=== PATIENT | male | born 1950 | race Caucasian/White ===

== ENCOUNTER 2018-03-14 14:51 | Inpatient (IN) | payer MEDICARE, OTHER ==
[~2018-03-14] VITALS: Ht 172.7 cm; Wt 90.7 kg
[2018-03-14] MEDS ORDERED: DOCUSATE SODIUM 100 MG (COLACE) CAP PO PRN (16:15)
[2018-03-14] MEDS ORDERED: IBUPROFEN TABLET 200 MG TAB PO PRN (16:15)
[2018-03-14] MEDS ORDERED: CALCIUM CARBONATE 500 MG (TUMS) TAB.CHEW PO PRN (16:15)
[2018-03-14] MEDS ORDERED: ALPRAZolam 0.25 MG (XANAX) TAB PO PRN (16:15)
[2018-03-14] MEDS ORDERED: diphenhydrAMINE 25 MG TAB (BENADRYL) PO PRN (16:15)
[2018-03-14] MEDS ORDERED: LOPERAMIDE 2 MG (IMODIUM) CAP PO PRN (16:15)
[2018-03-14] MEDS ORDERED: ONDANSETRON 4 MG (ZOFRAN) ORAL DISSOLVE TAB PO PRN (16:15)
--- NOTE | 2018-03-14 16:50 | NUR ---
PANCHO DU admitted to room 229-1, with an admitting diagnosis of TLIF OF L3-L5, on 03/14/18 from [facility] 4 STATES via WHEELCHAIR, accompanied by STAFF AND . PANCHO DU I introduced to surroundings, call light, bed controls, phone, TV, temperature control, lights, meal times, smoking policy, visitor policy, side rail policy, bathrooms and showers. Patient Rights given to patient in the handbook.PANCHO UD I verbalizes understanding that [facility] is not responsible for the loss or damage to any personal effects or valuables that are kept in the patients posession during their hospitalization. The following Patient Care Plans were discussed with the PT: Discharge Planning AND IMPAIRED MOBILITY. PANCHO DU I verbalizes understanding of Interdisciplinary Patient Education. Patient received Patient Rights Booklet, which includes Privacy Act Statement and Data Collection Information Summary. TEMP 102.0. DR. THURMAN OF ADMISSION AND FEVER. ORDERS NOTED.
[2018-03-14] MEDS ORDERED: HYDROcodone/APAP 5 MG/325 MG (LORTAB) TAB PO PRN (17:45)
[2018-03-14 17:54] LABS: BILIRUBIN,URINE NEGATIVE (NEGATIVE); CLARITY,URINE CLEAR; COLOR,URINE YELLOW; GLUCOSE, URINE (UA) NEGATIVE (NEGATIVE); KETONES,URINE NEGATIVE (NEGATIVE); LEUKOCYTE ESTERASE ,URINE NEGATIVE (NEGATIVE); NITRITE,URINE NEGATIVE (NEGATIVE); PH,URINE 5 (5-9); PROTEIN,URINE 2+ (NEGATIVE); UROBILINOGEN,URINE NORMAL (NORMAL)
--- NOTE | 2018-03-14 17:58 | Diagnostic Imaging Report ---
INDICATION: Wheezing, status post back surgery. EXAMINATION: Two-view chest, 03/14/2018. FINDINGS: There is a left-sided pacemaker. The heart is unremarkable. Pulmonary vasculature is minimally congested. Remaining lungs are clear. No effusions. No infiltrates. No pneumothorax. Postoperative findings noted along the cervical spine. IMPRESSION: 1. Increased perihilar opacities which could be due to mild vascular congestion; correlate with symptoms. 2. Not mentioned in the body of the report, small nodule noted in the retrosternal space. This is nonspecific, and if no priors are available for comparison, followup or CT on a nonemergent basis could exclude a noncalcified nodule. Dictated by: Dictated on workstation # [id number]
[2018-03-14 18:09] LABS: AMORPHOUS SEDIMENT,UR FEW AMOR URATES /LPF; SQUAMOUS EPITHELIAL CELL,UR RARE /HPF
[2018-03-14] MEDS: RT-ALBUTEROL/IPRATROPIUM 3 ML (DUONEB) VIAL INH SCH ×2 (19:28→22:55)
[2018-03-14 19:38] LABS: BASOPHILS % (AUTO) 0 % (0-10); EOSINOPHILS % (AUTO) 1 % (0-10); HEMATOCRIT 25 % (40-54); HEMOGLOBIN 8.3 G/DL (13.3-17.7); LYMPHOCYTES # (AUTO) 0.8 X 10^3 (1.0-4.0); LYMPHOCYTES % (AUTO) 14 % (12-44); MEAN CORPUSCULAR HEMOGLOBIN 29 PG (25-34); MEAN CORPUSCULAR HGB CONC 33 G/DL (32-36); MEAN CORPUSCULAR VOLUME 88 FL (80-99); MONOCYTES # (AUTO) 0.3 X 10^3 (0.0-1.0); MONOCYTES % (AUTO) 5 % (0-12); NEUTROPHILS # (AUTO) 4.5 X 10^3 (1.8-7.8); NEUTROPHILS % (AUTO) 79 % (42-75); PLATELET COUNT 145 10^3/uL (130-400); RED CELL DISTRIBUTION WIDTH 14.3 % (10.0-14.5); WHITE BLOOD COUNT 5.7 10^3/uL (4.3-11.0)
[2018-03-14] MEDS: NS IV 1000 ML 1,000 ML IV SCH (19:46)
[2018-03-14] MEDS: TAMSULOSIN 0.4 MG (FLOMAX) CAP PO SCH (19:46)
[2018-03-14 20:01] LABS: ALBUMIN 3.3 GM/DL (3.2-4.5); BILIRUBIN,TOTAL 0.7 MG/DL (0.1-1.0); CALCIUM 8.6 MG/DL (8.5-10.1); CREATININE SERUM 2.01 MG/DL (0.60-1.30); POTASSIUM 3.6 MMOL/L (3.6-5.0); TOTAL PROTEIN 6.1 GM/DL (6.4-8.2)
--- NOTE | 2018-03-14 20:15 | NUR ---
critical lab value blood glucose 47. per protocol gave sugared juice, ensure clear, peanut butter and vern cracker. contacted dr Cai and ok with holding insulin DETEMIR 15 units. recheck of blood sugar is now 74. Order for d5ns at 75cc/hr.
[2018-03-14] MEDS: inSUlin ASPART (NovoLOG) 1 UNIT/0.01 ML (CHARGE PER UNIT) SC SCH (20:23)
[2018-03-14] MEDS ORDERED: D5 NS 1000 ML IV SOLUTION 1,000 ML IV ONE (20:45)
[2018-03-14] MEDS ORDERED: D5 NS 1000 ML IV SOLUTION 1,000 ML IV SCH (20:45)
[2018-03-14] MEDS ORDERED: inSUlin DETERMIR 1 UNIT/0.01 ML (LEVEMIR) CHARGE PER UNIT SQ SCH (21:00)
[2018-03-14] MEDS: PANTOPRAZOLE 40 MG (PROTONIX) TAB PO SCH (21:27)
[2018-03-15] MEDS: ACETAMINOPHEN 500 MG TAB (TYLENOL) PO PRN ×3 (00:14→17:27)
[2018-03-15] MEDS: NS IV 1000 ML 1,000 ML IV SCH ×2 (00:15→16:31)
[2018-03-15] MEDS: RT-ALBUTEROL/IPRATROPIUM 3 ML (DUONEB) VIAL INH SCH ×6 (03:45→22:05)
[2018-03-15 05:33] LABS: BASOPHILS % (AUTO) 0 % (0-10); EOSINOPHILS # (AUTO) 0.1 10^3/uL (0.0-0.3); EOSINOPHILS % (AUTO) 1 % (0-10); HEMATOCRIT 23 % (40-54); HEMOGLOBIN 7.3 G/DL (13.3-17.7); LYMPHOCYTES # (AUTO) 1.1 X 10^3 (1.0-4.0); LYMPHOCYTES % (AUTO) 25 % (12-44); MEAN CORPUSCULAR HEMOGLOBIN 29 PG (25-34); MEAN CORPUSCULAR HGB CONC 32 G/DL (32-36); MEAN CORPUSCULAR VOLUME 89 FL (80-99); MONOCYTES # (AUTO) 0.3 X 10^3 (0.0-1.0); MONOCYTES % (AUTO) 7 % (0-12); NEUTROPHILS # (AUTO) 2.8 X 10^3 (1.8-7.8); NEUTROPHILS % (AUTO) 67 % (42-75); PLATELET COUNT 114 10^3/uL (130-400); RED CELL DISTRIBUTION WIDTH 13.9 % (10.0-14.5); WHITE BLOOD COUNT 4.2 10^3/uL (4.3-11.0)
[2018-03-15 05:52] LABS: ALBUMIN 2.8 GM/DL (3.2-4.5); BILIRUBIN,TOTAL 0.6 MG/DL (0.1-1.0); CALCIUM 8.1 MG/DL (8.5-10.1); CREATININE SERUM 2.01 MG/DL (0.60-1.30); POTASSIUM 3.4 MMOL/L (3.6-5.0); TOTAL PROTEIN 5.3 GM/DL (6.4-8.2)
[2018-03-15] MEDS ORDERED: NS IV 500 ML 500 ML IV SCH (06:03)
[2018-03-15 06:20] VITALS: BP 143/64
[2018-03-15] MEDS: inSUlin ASPART (NovoLOG) 1 UNIT/0.01 ML (CHARGE PER UNIT) SC SCH ×4 (06:57→20:53)
[2018-03-15] MEDS: PANTOPRAZOLE 40 MG (PROTONIX) TAB PO SCH ×2 (06:57→20:28)
[2018-03-15] MEDS: metFORMIN 500 MG (GLUCOPHAGE) TAB PO SCH ×2 (06:57→17:23)
--- NOTE | 2018-03-15 07:19 | NUR ---
patient was in the bathroom when RT entered the patients room; RT will come back later to do the SVN BT
[2018-03-15 09:04] VITALS: BP 160/67
[2018-03-15 09:19] VITALS: BP 148/70
[2018-03-15] MEDS ORDERED: SIMV20TA3 PO (09:31)
[2018-03-15] MEDS ORDERED: NFMET1000 PO (09:31)
[2018-03-15] MEDS ORDERED: PANT40TA3 PO (09:31)
[2018-03-15] MEDS ORDERED: AMLO10TA7 PO (09:31)
[2018-03-15] MEDS ORDERED: RAMI10CA69 PO (09:31)
[2018-03-15] MEDS ORDERED: HYDR25TA4 PO (09:31)
[2018-03-15] MEDS ORDERED: TAMS0.4C2 PO (09:31)
[2018-03-15] MEDS ORDERED: GABA-488 PO (09:31)
[2018-03-15] MEDS ORDERED: INSU200I4 SQ (09:31)
[2018-03-15] MEDS ORDERED: CLOP75TA28 PO (09:31)
--- NOTE | 2018-03-15 10:05 | Physical Therapy Evaluation ---
PT Evaluation-General Medical Diagnosis Admission Date Mar 14, 2018 at 16:50 Medical Diagnosis: s/p L3-5 lumbar fusion Onset Date: Mar 10, 2018 Therapy Diagnosis Therapy Diagnosis: abnormality of gait Height/Weight Height (Feet): 5 Height (Inches): 8.00 Weight (Pounds): 200 Weight (Ounces): 0.0 Precautions Precautions/Isolations: Fall Prevention, Standard Precautions, Pressure Ulcer Weight Bear Status Weight Bearing/Tolerated Weight Bearing/Tolerated Referral Physician: Trell Reason for Referral: Evaluation/Treatment Social History Home: Single Level Current Living Status: Significant Other Entry Into Home: Stairs With Railing PT Steps Inside Home: 3 Prior/Core FIM Prior Level of Function Therapy Code Descriptions/Definitions Functional [place] Measure: 0=Not Assessed/NA 4=Minimal Assistance 1=Total Assistance 5=Supervision or Setup 2=Maximal Assistance 6=Modified [place] 3=Moderate Assistance 7=Complete [place] Therapy Quality Codes: 6 Independent with activity with or without an assistive device 5 Patient requires set up or clean up by helper. Patient completes activity by themselves 4 Supervision or touching assist (CGA). [place] provide cues , steadying assist 3 The helper provides less than half the effort to complete the activity 2 The helper provides more than half the effort to complete the activity 1 Dependent. The helper does all the effort to complete an activity 7 Patient refused to complete or attempt activity 9 The patient did not perform the activity before the current illness or injury 88 Not attempted due to Medical conditions or safety concerns Functional Abilities and Goals: Independent: Patient completed the activities by him/herself, with or without an assistive device, with no assistance from a helper. Needed Some Help: Patient needed partial assistance from another person to complete activities. Dependent: A helper completed the activities for the patient. Unknown: Not Applicable: Bed Mobility: 7 Transfers (B,C,W/C) (FIM): 7 Gait: 7 Stairs: 7 Indoor Mobility (Ambulation): Independent Stairs: Independent PT Evaluation-Current ROM/Strength Strenght Lower Extremities 2+/5 in (R) hip flexion, 3+/5 (R) knee, 4/5 (L) LE Neuromuscular (Tone, Coordination, Reflexes) intact Sensory Hand Dominance: Right Sensation Right Lower Extremit: Intact Sensation Left Lower Extremity: Intact Transfers Therapy Code Descriptions/Definitions Functional [place] Measure: 0=Not Assessed/NA 4=Minimal Assistance 1=Total Assistance 5=Supervision or Setup 2=Maximal Assistance 6=Modified [place] 3=Moderate Assistance 7=Complete [place] Therapy Quality Codes: 6 Independent with activity with or without an assistive device 5 Patient requires set up or clean up by helper. Patient completes activity by themselves 4 Supervision or touching assist (CGA). [place] provide cues , steadying assist 3 The helper provides less than half the effort to complete the activity 2 The helper provides more than half the effort to complete the activity 1 Dependent. The helper does all the effort to complete an activity 7 Patient refused to complete or attempt activity 9 The patient did not perform the activity before the current illness or injury 88 Not attempted due to Medical conditions or safety concerns Transfers (B, C, W/C) (FIM): 3 Scootin Rollin Roll Left to Right (QC): 4 Supine to/from Sit: 3 Sit to/from Stand: 5 Sit to Lying (QC): 4 Lying to Sitting/Side of Bed(Q: 4 Sit to Stand (QC): 5 Chair/[id number]-zg-[id number] Xfer(QC): 4 Car Transfer (QC): 4 Gait Does the Patient Walk?: Yes Mode of Locomotion: Walk Anticipated Mode of Locomotion: Walk Gait (FIM): 1 Distance (FIM): 1=up to 49 ft Walk 10 feet (QC): 5 Stairs Stairs (FIM): 5 #of Steps: 4 Level of Assist: 5 1 Step (curb) (QC): 5 4 Steps (QC): 5 If not tested on admit;explain unsafe to do 12 steps Balance Sitting Static: Good Sitting Dynamic: Good Standing Static: Fair Standing Dynamic: Poor Special Test Comments unable secondary to recent surgery and hip replacements Assessment/Needs 68 y.o. male s/p multilevel fusion with limitations with functional mobility secondary to pain. Rehab Potential: Good PT Short Term Goals Short Term Goals Time Frame: Mar 29, 2018 Transfers (B,C,W/C) (FIM): 5 Gait (FIM): 5 Distance (FIM): 3=150 ft Gait Level of Assist: 5 Gait Assistive Device: FWW PT Form Builder Helper Goals Group Home Goals PT Group Home Goals Time Frame: Apr 12, 2018 Transfers (B,C,W/C) (FIM): 7 Sit to Lying (QC): 7 Lying-Sitting on Side/Bed(QC): 7 Sit to Stand (QC): 7 Rollin Roll Left to Right (QC): 7 Chair/Pcr-wr-Vztmj Xfer(QC): 7 Car Transfer (QC): 7 Does the Patient Walk: Yes Gait (FIM): 6 Gait distance (FIM): 3=150 ft Distance: 500' Walk 10 feet (QC): 7 Walk 10ft-Uneven Surface(QC): 7 Walk 50ft with 2 Turns (QC): 7 Walk 150 ft (QC): 7 Gait Level of Assist: 6 Gait Assistive Device: FWW PT Plan Problem List Problem List: Activity Tolerance, Functional Strength, Safety, Balance, Gait, Transfer, Bed Mobility, ROM Treatment/Plan Treatment Plan: Continue Plan of Care Treatment Plan: Bed Mobility, Concurrent Therapy, Education, Functional Activity Isaac, Functional Strength, Group Therapy, Gait, Therapeutic Exercise, Transfers Treatment Duration: Apr 12, 2018 Frequency: At least 5 of 7 days/Wk (IRF) Estimated Hrs Per Day: 1.5 hours per day Patient and/or Family Agrees t: Yes Safety Risks/Education Patient Education: Gait Training, Transfer Techniques, Steps, Issued Written HEP Time/GCodes Time In: 0930 Time Out: 1100 Total Billed Treatment Time: 90 Total Billed Treatment 1, EV Low complexity, 15' GT, 15' EX, 45' FA G Codes Necessary: DACIA Black PT Mar 15, 2018 10:05
[2018-03-15] MEDS ORDERED: KCL 10 MEQ TAB (MICRO K) PO NR (10:30)
--- NOTE | 2018-03-15 10:34 | PM&R H&P / Post Admit Assess ---
History of Present Illness HPI/Chief Complaint CC: Debility following lumbar spine surgery uncomplicated by Dr Elmore at [facility] HPI: This is a 67-year-old who had an uncomplicated lumbar spine surgery by Dr. Elmore on 03/10/18 at [facility] who had a complicated postoperative course requiring 1 unit of blood and postop fever with chest x- ray revealing atelectasis and significant delirium with worsening creatinine requiring inpatient rehabilitation at the [facility] hospital. His delirium has improved a great deal but still slightly slowed responses at times. Fecal incontinence will be managed while in rehabilitation hospital stay. Creatinine remained stable at 2.0. I have asked cardiology consultation in case patient has a rhythm disturbance while hospitalized here at the hospital. Dr. Ugalde is his african studies professor. Dr Laws is his PCP. Source: patient Exam Limitations: no limitations Date Seen 03/15/18 Time Seen by a Provider: 10:[address] Cai DO PCP Court Cai DO Referring Physician Date of Admission Mar 14, 2018 at 16:50 Home Medications & Allergies Home Medications Reviewed patient Home Medication Reconciliation performed by pharmacy medication reconciliations racking technician and/or nursing. Patients Allergies have been reviewed. Allergies Allergies Coded Allergies aspirin (Verified Allergy, Unknown, 03/14/18) dipyridamole (Verified Allergy, Unknown, 03/14/18) levofloxacin (Verified Allergy, Unknown, 03/14/18) Past [id number]-[id number] Hx Past Med/Social Hx: Reviewed Nursing Past Med/Soc Hx, Reviewed and Corrections made Patient Social History Marrital Status: Employed/Student: retired Alcohol Use: Denies Use Recreational Drug Use: No Smoking Status: Former Smoker Physical Abuse Screen: No Sexual Abuse: No Recent Foreign Travel: No Contact w/other who traveled: No Recent Hopitalizations: Yes (Surgery in November) Recent Infectious Disease Expo: No Immunizations Up To Date Date of Pneumonia Vaccine: Mar 14, 2011 Date of Influenza Vaccine: Jan 25, 2018 Seasonal Allergies Seasonal Allergies: Yes Past Medical History Surgeries: Cardiac (CAD), Orthopedic, Pacemaker Respiratory: COPD Currently Using CPAP: No Cardiac: Atrial Fibrillation, High Cholesterol, Hypertension Neurological: Neuropathy Sexually Transmitted Disease: No HIV/AIDS: No Genitourinary: Renal Failure Gastrointestinal: Gastroesophageal Reflux, Hiatal Hernia Musculoskeletal: Arthritis, Back Injury, Chronic Back Pain Endocrine: Diabetes, Insulin dep Are Your Blood Sugars Over 250: No HEENT: Cataract Loss of Vision: Denies Hearing Impairment: Denies Cancer: Melanoma Did You Recieve Any Treatments: Yes What Type of Treatment Did You: Surgical Intervention History of Blood Disorders: No Adverse Reaction to Blood Ibarra: No Family History BREAST CAN 19 MOTHER Cardiovascular disease 19 FATHER G8 SISTER FH: breast cancer Diabetes Review of Systems Constitutional: see HPI, chills, diaphoresis, dizziness, fever, malaise, weakness EENTM: no symptoms reported Respiratory: cough, short of breath, wheezing Cardiovascular: no symptoms reported Gastrointestinal: diarrhea, loss of appetite Genitourinary: decreased output Musculoskeletal: back pain Skin: no symptoms reported Psychiatric/Neurological: Depressed, Other (confused) All Other Systems Reviewed Negative Unless Noted: Yes Physical Exam Exam Vital Signs Vital Signs Date Time Temp Pulse Resp B/P (MAP) Pulse Ox O2 Delivery O2 Flow Rate FiO2 03/15/18 12:06 99.0 81 18 148/66 97 Room Air Capillary Refill : General Appearance: No Apparent Distress, WD/WN, Chronically ill, Thin HEENT: PERRL/EOMI, TMs Normal, Normal ENT Inspection, Pharynx Normal, Moist Mucous Membranes Neck: Full Range of Motion, Normal Inspection, Non Tender, Supple Respiratory: Chest Non Tender, Lungs Clear, No Accessory Muscle Use, No Respiratory Distress, Decreased Breath Sounds (bases) Cardiovascular: Regular Rate, Rhythm, No Edema, No Gallop, No JVD, No Murmur Gastrointestinal: Normal Bowel Sounds, No Organomegaly, No Pulsatile Mass, Non Tender, Soft Back: Decreased Range of Motion, Other (dressing intact) Extremity: Normal Capillary Refill, Normal Inspection, Normal Range of Motion, Non Tender, No Calf Tenderness, No Pedal Edema Neurologic/Psychiatric: Alert, Oriented x3, No Motor/Sensory Deficits, Normal Mood/Affect, Other (subtle slowed responses) Skin: Normal Color, Warm/Dry Lymphatic: No Adenopathy Results Results/Procedures Labs Laboratory Tests 03/14/18 19:25 03/15/18 05:22 Patient resulted labs reviewed. Assessment/Plan Assessment and Plan Assess & Plan/Chief Complaint Assessment: Debility Status post uncomplicated lumbar spine surgery POD # 5 Acute fecal incontinence Chronic renal insufficiency with acute elevation of creatinine nonoliguric Postop anemia requiring blood transfusions 1 at [facility] and the other today COPD with chronic bronchitis Pacemaker Sick sinus syndrome requesting Cardiology consultation GERD Hypertension BPH Plan: Intensive therapies Monitor urinary output Check labs in morning Continue holding Plavix due to risk of hematoma formation Consult cardiology Monitor creatinine Home meds but hold hydrochlorothiazide, KENIA inhibitor, and decreased dose of metformin that he is insistent on taking in order to decrease chance of lactic acidosis in the setting of elevated creatinine Replace potassium Monitor fever only since workup negative (1) Debility (2) Pacemaker (3) Fever postop (4) SSS (sick sinus syndrome) (5) Hx TIA/stroke w/o resid (6) BPH (benign prostatic hyperplasia) (7) Transfusion of blood during current hospitalization (8) Hypertension (9) Chronic bronchitis (10) GERD (gastroesophageal reflux disease) (11) Anemia, posthemorrhagic, acute (12) Renal insufficiency (13) Neuropathy (14) Hyperlipidemia (15) Delirium (16) Diabetes mellitus (17) Fecal incontinence (18) Hypokalemia (19) COPD (chronic obstructive pulmonary disease) Post Admission Physician Asses Date seen by provider: Mar 15, 2018 Time seen by provider: 10:00 Admisison Dx: (1) Debility Status: Acute (2) Pacemaker Status: Chronic (3) Renal insufficiency Status: Acute (4) Anemia, posthemorrhagic, acute Status: Acute (5) Transfusion of blood during current hospitalization Status: Acute (6) Diabetes mellitus Status: Chronic (7) Hypertension Status: Chronic (8) COPD (chronic obstructive pulmonary disease) Status: Chronic (9) Chronic bronchitis Status: Chronic (10) Fever postop Status: Acute (11) H/O lumbosacral spine surgery Status: Acute (12) Delirium Status: Acute (13) Hypokalemia Status: Acute (14) BPH (benign prostatic hyperplasia) Status: Chronic (15) Hyperlipidemia Status: Chronic (16) GERD (gastroesophageal reflux disease) Status: Chronic (17) Neuropathy Status: Chronic (18) Fecal incontinence Status: Acute (19) SSS (sick sinus syndrome) Status: Chronic (20) Hx TIA/stroke w/o resid Status: Chronic The preadmission screen agrees with the post admission assessment that the patient is a good candidate for inpatient rehabilitation. The patient will have a comprehensive program of inpatient rehabilitation with a goal of maximizing level of functional independence prior to discharge home with family. The patient will have PT/OT ninety minutes per day, each discipline, five days a week for gait, strengthening, conditioning, balance, ADLs, any patient/family/caregiver training as necessary. Speech therapy to do cognitive assessment and treat as indicated. Rehabilitation nursing to assist with bowel, bladder, skin, wound care, medication administration, pain management. Surgical Services Asst to assist with discharge planning, community reentry. SCD's for DVT prophylaxis. He appears to be well motivated to participate in three hours of therapy a day. He should be able to tolerate three hours of therapy a day from a medical standpoint. He should benefit from the three hours of therapy a day. He has a reasonable discharge plan, reasonable discharge rehabilitation goals and a supportive family. He has various comorbidities that need to be closely monitored with medications and treatments adjusted on a daily basis as needed. These include: Barriers to discharge for this patient who had been independent prior to this are for him to be modified independent to supervision for ADLs and mobility skills prior to discharge home with [family], so as to lessen the burden of the caregivers. Risks for this patient include: 1. Fall 2. Fracture 3. DVT 4. Pulmonary embolism 5. Wound infection 6. Skin breakdown 7. Contractures 8. Poorly controlled pain 9. Urinary retention 10. UTI 11. Respiratory infection 12. Aspiration Estimated Length of Stay: 7 days Prognosis: Rehab prognosis appears good for goal of discharge home with family modified independent to supervision for ADLs and mobility skills. General: Alert, Oriented X3, Cooperative, No Acute Distress HEENT: Atraumatic, PERRLA Neck: Supple, No JVD, No Thyromegaly, +2 Carotid Pulse No Bruit, No LAD Lungs: Clear to Auscultation, Normal Air Movement Heart: Regular Rate, Normal S1, Normal S2 Abdomen: Normal Bowel Sounds, Soft, No Tenderness, No Hepatosplenomegaly, No Masses Extremities: No Clubbing, No Cyanosis, No Edema, Normal Pulses, No Tenderness/ Swelling Skin: No Rashes, No Breakdown, No Significant Lesion Neuro: Normal Speech, Normal Tone, Sensation Intact, Cranial Nerves 3-12 NL, Reflexes 2+, Other (generalized weakness all extremities) Psych/Mental Status: Mental Status NL, Mood NL, Other (subtle slowing) Copy Copies To 1: GABY LONDON MD Copies To 2: QUE UGALDE MINDI DO Mar 15, 2018 10:34
--- NOTE | 2018-03-15 10:46 | Occupational Therapy Eval ---
OT Evaluation-General/PLF Medical Diagnosis Admission Date Mar 14, 2018 at 16:50 Medical Diagnosis: Stenosis Onset Date: Mar 10, 2018 Therapy Diagnosis Therapy Diagnosis: decreased self care skills Height/Weight Height (Feet): 5 Height (Inches): 8.00 Weight (Pounds): 200 Weight (Ounces): 0.0 Precautions Precautions/Isolations: Fall Prevention, Standard Precautions, Pressure Ulcer Safety Interventions: None Comments Back brace Referral Physician: Trell Medical History Pertinent Medical History: DM, HTN Additional Medical History MEGAN, back surgery, hypercholesterolemia, reflux, melanoma, pacemaker, bilateral CTR, TIAx3 Current History pt s/p lumbar surgery Reviewed History: Yes Social History Home: Single Level Current Living Status: Spouse Entry Into Home: Stairs With Railing ADL-Prior Level of Function Therapy Code Descriptions/Definitions Functional [place] Measure: 0=Not Assessed/NA 4=Minimal Assistance 1=Total Assistance 5=Supervision or Setup 2=Maximal Assistance 6=Modified [place] 3=Moderate Assistance 7=Complete [place] Therapy Quality Codes: 6 Independent with activity with or without an assistive device 5 Patient requires set up or clean up by helper. Patient completes activity by themselves 4 Supervision or touching assist (CGA). Shock provide cues , steadying assist 3 The helper provides less than half the effort to complete the activity 2 The helper provides more than half the effort to complete the activity 1 Dependent. The helper does all the effort to complete an activity 7 Patient refused to complete or attempt activity 9 The patient did not perform the activity before the current illness or injury 88 Not attempted due to Medical conditions or safety concerns Functional Abilities and Goals: Independent: Patient completed the activities by him/herself, with or without an assistive device, with no assistance from a helper. Needed Some Help: Patient needed partial assistance from another person to complete activities. Dependent: A helper completed the activities for the patient. Unknown: Not Applicable: ADL PLOF Comments Pt states he is normally independent with self care and mobility Self Care: Independent Drive Self: Yes OT Current Status Subjective Pt agrees to therapy this morning. Reports 4/10 pain in LE. Mental Status/Objective Patient Orientation: Person, Place, Situation Attachments: IV Current Glasses/Contacts: Yes Hearing Aids: No Dentures/Partials: Yes Hand Dominance: Right Upper Extremity ROM Grossly WFL Upper Extremity Coordination Intact ADL-Treatment ADL-Current Pt in restroom when therapist arrives. Pt sit to stand from toilet with SBA. Requires assist for toileting hygiene. Pt able to manage clothing with SBA. Sponge bath completed while seated in chair. Upper body bathing completed with set up. Pt able to wash bilateral upper legs and laly area. Requires assist for lower legs. Don pullover shirt with SBA. Pt required assist to start shorts over feet secondary to back precautions. Will need adaptive equipment for LE ADLs. Pt stood with good balance and was able to complete pant hike. Donned back brace with minimal assist. Assist to doff/don socks. Grooming tasks completed standing at sink. Pt completed oral care with SBA. Pt returned to chair, sitting with needs met and RN present after session. Eating (FIM): 6 Eating (QC): 6 Grooming (FIM): 5 Oral Hygiene (QC): 4 Bathing (FIM): 3 Bathing Location: L Arm, R Arm, L Upper Leg, R Upper Leg, Chest, Abdomen, Perineal Area Shower/Bathe Self (QC): 3 Upper Body Dressing (FIM): 5 Upper Body Dressing (QC): 4 Lower Body Dressing (FIM): 4 Lower Body Dressing (QC): 3 Toileting (FIM): 3 Toileting Hygiene (QC): 3 Toilet/Commode Transfer (FIM): 5 Toilet Transfer (QC): 4 Education OT Patient Education: Rehab process Teaching Recipient: Patient Teaching Methods: Discussion Response to Teaching: Verbalize Understanding OT Short Term Goals Short Term Goals Time Frame: Mar 22, 2018 Bathing(FIM): 4 Lower Body Dressing(FIM): 5 1=Demonstrate adherence to instructed precautions during ADL tasks. 2=Patient will verbalize/demonstrate understanding of assistive devices/ modifications for ADL. 3=Patient will improve strength/tolerance for activity to enable patient to perform ADL's. OT Finance Admin Goals Half-Way Goals Time Frame: Mar 29, 2018 Eating (FIM): 6 Eating (QC): 6 Groomin Oral Hygiene (QC): 6 Bathing(FIM): 5 Shower/Bathe Self (QC): 5 Upper Body Dressing(FIM): 6 Upper Body Dressing (QC): 6 Lower Body Dressing(FIM): 6 Lower Body Dressing (QC): 6 On/Off Footwear (QC): 6 Toileting(FIM): 6 Toileting Hygiene (QC): 6 Toilet/Commode Transfer(FIM): 6 Toilet/Commode Transfer (QC): 6 Shower Transfer(FIM): 5 Additional Goals: 1-Demonstrate ADL Tasks, 2-Verbalize Understanding, 3- ImproveStrength/Isaac 1=Demonstrate adherence to instructed precautions during ADL tasks. 2=Patient will verbalize/demonstrate understanding of assistive devices/ modifications for ADL. 3=Patient will improve strength/tolerance for activity to enable patient to perform ADL's. OT Education/Plan Problem List/Assessment Assessment: Decreased Activ Tolerance, Decreased UE Strength, Dependent Transfers, Impaired Self-Care Skills Pt to benefit from skilled OT intervention for ADL training, transfers, strengthening, adaptive equipment education, and home safety education to increase functional independence and allow safe discharge home. Discharge Recommendations Plan/Recommendations: Continue POC Treatment Plan/Plan of Care Treatment,Training & Education: Yes Patient would benefit from OT for education, treatment and training to promote independence in ADL's, mobility, safety and/or upper extremity function for ADL' s. Plan of Care: ADL Retraining, Functional Mobility, Group Exercise/Act as Ind, UE Funct Exercise/Act Treatment Duration: Mar 29, 2018 Frequency: At least 5 of 7 days/Wk (IRF) Estimated Hrs Per Day: 1.5 hours per day Agreement: Yes Rehab Potential: Good Time/GCodes Start Time: 07:15 Stop Time: 08:45 Total Time Billed (hr/min): 90 Billed Treatment Time 1 visit, EVL(15minutes), ADLx5(75minutes) AIDA CASTILLO OT Mar 15, 2018 10:46
[2018-03-15] MEDS ORDERED: GABAPENTIN 300 MG (NEURONTIN) CAP ONE (11:30)
[2018-03-15] MEDS: amLODIPine 10 MG (NORVASC) TAB PO SCH (11:32)
[2018-03-15] MEDS: guaiFENesin (MUCINEX) 600 MG TAB PO SCH ×2 (11:32→20:28)
[2018-03-15] MEDS: GABAPENTIN 300 MG (NEURONTIN) CAP PO SCH ×2 (11:34→20:29)
[2018-03-15 12:06] VITALS: BP 148/66
--- NOTE | 2018-03-15 13:00 | Diagnostic Imaging Report ---
Indication: Pain COMPARISON: None available. Technique: 2 radiographs of the right hip dated 03/15/2018. Findings: Right total hip arthroplasty is present. Additionally, lateral plate with cerclage wires are present associated with the proximal right femur. No evidence of hardware complication. No acute fracture. No dislocation. Mild scattered vascular calcifications. The pubic symphysis is intact. Prominent osseous excrescence is seen associated with the lateral aspect of the acetabular roof. Impression: Post surgical changes associated with the right hip including a right total hip arthroplasty without evidence of hardware complication. No acute fracture or dislocation. Prominent osseous excrescence associated with the lateral aspect of the acetabular roof. This is nonspecific and could relate to prominent osteophyte formation versus os acetabulum versus heterotopic ossification. Dictated by: Dictated on workstation # [id number]
--- NOTE | 2018-03-15 13:35 | NUR ---
DR COYNE NOTIFIED OF CONSULT
[2018-03-15] MEDS: TAMSULOSIN 0.4 MG (FLOMAX) CAP PO SCH (17:23)
[2018-03-15 18:39] VITALS: BP 125/52
--- NOTE | 2018-03-15 19:36 | Consultation-Cardiology ---
HPI-Cardiology Cardiology Consultation: Date of Consultation 03/15/18 Time Seen by a Provider: 19:05 Date of Admission Attending Physician Court Cai DO Admitting Physician Court Cai DO Consulting Physician SHILPI COYNE MD, MA, FACP, FACC, [facility], CCDS Physician requesting consult: Dr Cai HPI: Chief Complaint: Reason for consultation: H/o pacemaker HPI: 67 yo man admitted to Dr Cai for rehab after lumbar spinal surg on 03/10/18. Does not report cp or palp or syncope. Has a chronic pacemaker in place that is followed by his gauge checker in [place]. Has chronic bilat leg weakness. Denies leg swelling. Tires easily. Moderate exertional shortness of breath Review of Systems-Cardiology Review of Systems Constitutional: malaise, tiredness; No weight loss, No weight gain Eyes: No vision change Ears/Nose/Throat: No ear discharge, No nasal drainage, No recent hearing loss Respiratory: As described under HPI Cardiovascular: As described under HPI Gastrointestinal: No diarrhea, No difficulty swallowing, No vomiting Genitourinary: No dysuria, No hematuria, No urine frequency changes Musculoskeletal: back pain (chronic) Skin: No ulcerations Psychiatric/Neurological: other (bilat leg weakness); No seizure, No syncope Hematologic: No bleeding abnormalities All Other Systems Reviewed Negative Unless Noted: Yes [id number] Hx Patient Social History Marrital Status: Employed/Student: retired Alcohol Use: Denies Use Recreational Drug Use: No Smoking Status: Former Smoker Recent Foreign Travel: No Recent Infectious Disease Expo: No Hospitalization with Isolation: Denies Physical Abuse Screen: No Sexual Abuse: No Immunizations Up To Date Date of Pneumonia Vaccine: Mar 14, 2011 Date of Influenza Vaccine: Jan 25, 2018 Past Medical History PMH As described under Assessment. Family Medical History Family History: BREAST CAN 19 MOTHER Cardiovascular disease 19 FATHER G8 SISTER FH: breast cancer Allergies and Home Medications Allergies Coded Allergies: aspirin (Verified Allergy, Unknown, 03/14/18) dipyridamole (Verified Allergy, Unknown, 03/14/18) levofloxacin (Verified Allergy, Unknown, 03/14/18) Home Medications Amlodipine Besylate 10 Mg Tablet, 10 MG PO DAILY, (Reported) Clopidogrel Bisulfate 75 Mg Tablet, 75 MG PO DAILY, (Reported) Gabapentin 300 Mg Capsule, 300 MG PO BID, (Reported) Hydrochlorothiazide 25 Mg Tablet, 25 MG PO DAILY, (Reported) Insulin Degludec 200 Unit/1 Ml Insuln.pen, 30 UNIT SQ HS, (Reported) Metformin HCl 1,000 Mg Tab, 1,000 MG PO BID, (Reported) Pantoprazole Sodium 40 Mg Tablet.dr, 40 MG PO DAILY, (Reported) Ramipril 10 Mg Capsule, 10 MG PO DAILY, (Reported) Simvastatin 20 Mg Tablet, 20 MG PO HS, (Reported) Tamsulosin HCl 0.4 Mg Cap.er.24h, 0.4 MG PO DAILY, (Reported) Daily until stone passage Patient Home Medication List Home Medication List Reviewed: Yes Physical Exam-Cardiology Physical Exam Vital Signs/I&O 03/15/18 03/15/18 03/15/18 03/15/18 09:00 09:04 09:19 11:45 Temp 98.2 98.8 Pulse 75 76 Resp 18 18 B/P (MAP) 160/67 148/70 Pulse Ox 97 98 97 92 O2 Delivery Room Air Room Air Room Air Room Air 03/15/18 03/15/18 03/15/18 03/15/18 12:06 15:09 18:39 18:40 Temp 99.0 100.0 Pulse 81 86 Resp 18 18 B/P (MAP) 148/66 125/52 (76) Pulse Ox 97 94 100 98 O2 Delivery Room Air Room Air Room Air Room Air 03/15/18 00:00 Intake Total 300 ml Balance 300 ml Capillary Refill : Constitutional: AAO x 3, well-developed, well-nourished HEENT: EOMI, hearing is well preserved, xanthelasmas are seen Neck: carotid pulses are 2 + bilaterally, with good upstrokes Respiratory: No accessory muscle use; other (good bilat air entry, diminished at the bases) Cardiovascular: regular rate-rhythm, S1 and S2, systolic murmur (soft THA at card base) Gastrointestinal: No tender; soft; No guarding, No rebound; audible bowel sounds Extremities: No clubbing, No cyanosis, No significant edema Neurologic/Psychiatric: oriented x 3, other (4/5 power in both legs) Skin: No rash on exposed areas, No ulcerations on exposed areas Data Review Labs Laboratory Tests 03/14/18 20:29: Glucometer 74 03/14/18 23:40: Glucometer 283H 03/15/18 05:22: White Blood Count 4.2L, Red Blood Count 2.52L, Hemoglobin 7.3L, Hematocrit 23L, Mean Corpuscular Volume 89, Mean Corpuscular Hemoglobin 29, Mean Corpuscular Hemoglobin Concent 32, Red Cell Distribution Width 13.9, Platelet Count 114L, Mean Platelet Volume 11.0H, Neutrophils (%) (Auto) 67, Lymphocytes (%) (Auto) 25 , Monocytes (%) (Auto) 7, Eosinophils (%) (Auto) 1, Basophils (%) (Auto) 0, Neutrophils # (Auto) 2.8, Lymphocytes # (Auto) 1.1, Monocytes # (Auto) 0.3, Eosinophils # (Auto) 0.1, Basophils # (Auto) 0.0, Sodium Level 134L, Potassium Level 3.4L, Chloride Level 105, Carbon Dioxide Level 19L, Anion Gap 10, Blood Urea Nitrogen 55H, Creatinine 2.01H, Estimat Glomerular Filtration Rate 33, BUN/ Creatinine Ratio 27, Glucose Level 292H, Calcium Level 8.1L, Corrected Calcium 9.1, Total Bilirubin 0.6, Aspartate Amino Transf (AST/SGOT) 116H, Alanine Aminotransferase (ALT/SGPT) 145H, Alkaline Phosphatase 133, Ammonia 30, B-Type Natriuretic Peptide 35.9, Total Protein 5.3L, Albumin 2.8L, Thyroid Stimulating Hormone (TSH) 0.65 03/15/18 12:13: Glucometer 93 03/15/18 17:21: Glucometer 188H Laboratory Tests 03/14/18 19:25 03/15/18 05:22 Laboratory Tests 03/14/18 19:25 03/15/18 05:22 A/P-Cardiology Assessment/Admission Diagnosis S/p lumbar spinal surgery on 03/10/18 Post-op anemia, worsening. This is managed by Dr Trell De La Torre, including bilat leg weakness (apparently chronic) H/o pacemaker in [place], [place]. He states last pacemaker check was in Jan 2018. He states "heart block" led to his pacemaker about a year ago. He does not report h/o atrial fibrillation and states has never been on blood thinners other than Plavis. Also reports that heart arteries did not show blockage at w/ u at that time H/o ministrokes. 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
[2018-03-15] MEDS ORDERED: inSUlin DETERMIR 1 UNIT/0.01 ML (LEVEMIR) CHARGE PER UNIT SQ SCH (21:00)
--- NOTE | 2018-03-15 21:30 | NUR ---
Dr. Cai authorized the use of Tresiba 30 units SC at HS and to DC Levemir 5 units at HS. Also, Dr. Cai ordered to ask Dr. Elmore if the patient can initiate Plavix.
--- NOTE | 2018-03-16 00:30 | NUR ---
Dr. Elmore called to check how patient was doing. He ordered labs and a KUB xray for the morning. Also, Dr. Elmore authorized the use of Plavix 75 mg PO daily, starting in the morning.
[2018-03-16 05:49] VITALS: BP 128/63
[2018-03-16] MEDS: inSUlin ASPART (NovoLOG) 1 UNIT/0.01 ML (CHARGE PER UNIT) SC SCH ×4 (05:49→20:55)
[2018-03-16] MEDS: KCL 10 MEQ TAB (MICRO K) PO SCH (06:01)
[2018-03-16] MEDS: PANTOPRAZOLE 40 MG (PROTONIX) TAB PO SCH ×2 (06:01→20:53)
[2018-03-16] MEDS: metFORMIN 500 MG (GLUCOPHAGE) TAB PO SCH ×2 (06:01→17:03)
[2018-03-16] MEDS: NS IV 1000 ML 1,000 ML IV SCH ×2 (06:01→18:08)
[2018-03-16 06:45] LABS: BASOPHILS % (AUTO) 0 % (0-10); EOSINOPHILS # (AUTO) 0.1 10^3/uL (0.0-0.3); EOSINOPHILS % (AUTO) 2 % (0-10); HEMATOCRIT 24 % (40-54); HEMOGLOBIN 7.8 G/DL (13.3-17.7); LYMPHOCYTES # (AUTO) 0.9 X 10^3 (1.0-4.0); LYMPHOCYTES % (AUTO) 16 % (12-44); MEAN CORPUSCULAR HEMOGLOBIN 29 PG (25-34); MEAN CORPUSCULAR HGB CONC 33 G/DL (32-36); MEAN CORPUSCULAR VOLUME 89 FL (80-99); MEAN PLATELET VOLUME 11.1 FL (7.4-10.4); MONOCYTES # (AUTO) 0.4 X 10^3 (0.0-1.0); MONOCYTES % (AUTO) 7 % (0-12); NEUTROPHILS # (AUTO) 3.9 X 10^3 (1.8-7.8); NEUTROPHILS % (AUTO) 75 % (42-75); PLATELET COUNT 150 10^3/uL (130-400); RED CELL DISTRIBUTION WIDTH 14.8 % (10.0-14.5); WHITE BLOOD COUNT 5.3 10^3/uL (4.3-11.0)
[2018-03-16 07:10] LABS: ALBUMIN 2.9 GM/DL (3.2-4.5); BILIRUBIN,TOTAL 1.1 MG/DL (0.1-1.0); CALCIUM 8.1 MG/DL (8.5-10.1); CREATININE SERUM 1.64 MG/DL (0.60-1.30); POTASSIUM 3.9 MMOL/L (3.6-5.0); TOTAL PROTEIN 5.3 GM/DL (6.4-8.2)
[2018-03-16 07:32] LABS: ERYTHROCYTE SEDIMENTATION RATE 75 MM/HR (0-30)
--- NOTE | 2018-03-16 07:33 | Progress Note (SOAP) ---
Subjective Date Seen by a Provider: Mar 16, 2018 Time Seen by a Provider: 07:30 Subjective/Events-last exam Feels ok, pain controlled, getting stronger. No specific concerns. Focused Exam Lactate Level 03/14/18 19:25: Lactic Acid Level 1.14 Objective Exam Vital Signs Date Time Temp Pulse Resp B/P (MAP) Pulse Ox O2 Delivery O2 Flow Rate FiO2 03/16/18 05:49 99.1 74 18 128/63 (84) 99 Room Air 03/15/18 21:00 Room Air 03/15/18 18:40 98 Room Air 03/15/18 18:39 100.0 86 18 125/52 (76) 100 Room Air 03/15/18 15:09 94 Room Air 03/15/18 12:06 99.0 81 18 148/66 97 Room Air 03/15/18 11:45 92 Room Air 03/15/18 09:19 98.8 76 18 148/70 97 Room Air 03/15/18 09:04 98.2 75 18 160/67 98 Room Air 03/15/18 09:00 97 Room Air I & O 03/16/18 07:00 Intake Total 3912 ml Output Total 1750 ml Balance 2162 ml Capillary Refill : General Appearance: No Apparent Distress Neck: Supple Respiratory: No Accessory Muscle Use, No Respiratory Distress Cardiovascular: Normal Peripheral Pulses Gastrointestinal: non tender, soft Extremity: Normal Capillary Refill, No Calf Tenderness Neurologic/Psychiatric: Alert, Oriented x3, No Motor/Sensory Deficits Other comments Dressing with minimal serous drainage, mild erythema around jairo on wound. Results Lab Laboratory Tests 03/15/18 12:13: Glucometer 93 03/15/18 17:21: Glucometer 188H 03/15/18 20:26: Glucometer 250H 03/16/18 05:46: Glucometer 132H 03/16/18 05:47: White Blood Count 5.3, Red Blood Count 2.70L, Hemoglobin 7.8L, Hematocrit 24L, Mean Corpuscular Volume 89, Mean Corpuscular Hemoglobin 29, Mean Corpuscular Hemoglobin Concent 33, Red Cell Distribution Width 14.8H, Platelet Count 150, Mean Platelet Volume 11.1H, Neutrophils (%) (Auto) 75, Lymphocytes (%) (Auto) 16 , Monocytes (%) (Auto) 7, Eosinophils (%) (Auto) 2, Basophils (%) (Auto) 0, Neutrophils # (Auto) 3.9, Lymphocytes # (Auto) 0.9L, Monocytes # (Auto) 0.4, Eosinophils # (Auto) 0.1, Basophils # (Auto) 0.0, Sodium Level 140, Potassium Level 3.9, Chloride Level 111H, Carbon Dioxide Level 18L, Anion Gap 11, Blood Urea Nitrogen 44H, Creatinine 1.64H, Estimat Glomerular Filtration Rate 42, BUN/ Creatinine Ratio 27, Glucose Level 121H, Calcium Level 8.1L, Corrected Calcium 9.0, Total Bilirubin 1.1H, Aspartate Amino Transf (AST/SGOT) 52H, Alanine Aminotransferase (ALT/SGPT) 108H, Alkaline Phosphatase 151H, C-Reactive Protein High Sensitivity 9.92H, Total Protein 5.3L, Albumin 2.9L Assessment/Plan Assessment/Plan Assess & Plan/Chief Complaint S/P L3-5 TLIF/PSF, with revision decompression. Diabetes Heart Disease Ok to restart Plavix Bid dressing changes, to keep dry await ESR, but would recommend to likely start ABX, prophylactically on this wound with all his risk factors.. Clinical Quality Measures DVT/VTE Risk/Contraindication: Risk Factor Score Per Nursin RFS Level Per Nursing on Admit: 4+=Very High KAREN MITCHELL MD Mar 16, 2018 07:33
[2018-03-16] MEDS: RT-ALBUTEROL/IPRATROPIUM 3 ML (DUONEB) VIAL INH SCH ×5 (08:32→22:54)
[2018-03-16] MEDS ORDERED: TAMSULOSIN 0.4 MG (FLOMAX) CAP PO SCH (09:00)
[2018-03-16] MEDS ORDERED: NON-FORMULARY MEDICATION 1 EA EA (Amlodipine Besylate 10 MG) PO SCH (09:00)
[2018-03-16] MEDS: guaiFENesin (MUCINEX) 600 MG TAB PO SCH ×2 (09:49→20:53)
[2018-03-16] MEDS: GABAPENTIN 300 MG (NEURONTIN) CAP PO SCH ×2 (09:49→20:53)
[2018-03-16] MEDS: amLODIPine 10 MG (NORVASC) TAB PO SCH (09:49)
--- NOTE | 2018-03-16 10:48 | Diagnostic Imaging Report ---
INDICATION: Low back pain, history of laminectomy and fusion. COMPARISON: None. FINDINGS: Two views of the lumbar spine demonstrate laminectomy and fusion of L4-5 and L5-S1. Alignment is stable. There is no subluxation or fracture. No soft tissue gas is identified. Bone mineralization appears unremarkable. IMPRESSION: Stable-appearing lumbar laminectomy and fusion. No acute abnormality identified. Dictated by: Dictated on workstation # [id number]
--- NOTE | 2018-03-16 10:52 | Diagnostic Imaging Report ---
INDICATION: Back pain. One week postoperative. TECHNIQUE: Supine and upright views of the abdomen, 10:19 a.m. CORRELATION STUDY: None. FINDINGS: Posterior fusion hardware as well as intervertebral disc spacer devices are noted at the of L3, L4, and L5 levels. Overlying skin jairo are present. Diffuse small bowel gas is present. Gas is to the level of the rectum. Feature may be reflective of mild ileus. No evidence for overt bowel obstruction. No evidence for large fecal impaction. Multiple rounded calcifications in the right upper quadrant favoring probable gallstones. Postop changes of bilateral hips. IMPRESSION: 1. Postop changes of the lumbar spine. 2. Gas-filled loops of bowel favoring probable ileus. No high-degree bowel obstruction. 3. Findings consistent with likely cholelithiasis. Dictated by: Dictated on workstation # [id number]
--- NOTE | 2018-03-16 12:51 | PM&R Progress Note ---
Subjective HPI/CC On Admission Date Seen by Provider: Mar 16, 2018 Time Seen by Provider: 12:30 CC: Debility following lumbar spine surgery uncomplicated by Dr Elmore at [facility] HPI: This is a 67-year-old who had an uncomplicated lumbar spine surgery by Dr. Elmore on 03/10/18 at [facility] who had a complicated postoperative course requiring 1 unit of blood and postop fever with chest x- ray revealing atelectasis and significant delirium with worsening creatinine requiring inpatient rehabilitation at the full[facility]service hospital. His delirium has improved a great deal but still slightly slowed responses at times. Fecal incontinence will be managed while in rehabilitation hospital stay. Creatinine remained stable at 2.0. I have asked cardiology consultation in case patient has a rhythm disturbance while hospitalized here at the hospital. Dr. Kahn is his asphalt patcher. Dr Laws is his PCP. Subjective/Events-last exam Refused ECHO due to recent one done per patient and stated "medicare fraud if it is done." Dr Elmore saw the patient today May benefit from wound vac so I spoke to Dr Arndt and he will see the patient Restarted his Tresiba Neighbors are visiting him here today Dr. Elmore saw him this morning and we conferred Incision site looks slightly pink but instead of an antibiotic and since fever is now resolved we are thinking the wound VAC would be a better choice No fecal incontinence but had a large runny stool today We'll continue IV fluid until tomorrow Using incentive spirometer Overall much improved and creatinine much improved Review of Systems General: Fatigue Musculoskeletal: back pain Focused Exam Lactate Level 03/14/18 19:25: Lactic Acid Level 1.14 Objective Exam Vital Signs Vital Signs Date Time Temp Pulse Resp B/P (MAP) Pulse Ox O2 Delivery O2 Flow Rate FiO2 03/16/18 10:54 92 Room Air 03/16/18 05:49 99.1 74 18 128/63 (84) Capillary Refill : General Appearance: No Apparent Distress HEENT: PERRL/EOMI, TMs Normal, Normal ENT Inspection, Pharynx Normal, Moist Mucous Membranes Neck: Supple Respiratory: No Accessory Muscle Use, No Respiratory Distress Cardiovascular: Normal Peripheral Pulses Gastrointestinal: Normal Bowel Sounds, No Organomegaly, No Pulsatile Mass, Non Tender, Soft Back: Decreased Range of Motion, Other (dressing intact) Extremity: Normal Capillary Refill, No Calf Tenderness Neurologic/Psychiatric: Alert, Oriented x3, No Motor/Sensory Deficits, Other ( no confusion now) Skin: Normal Color, Warm/Dry Lymphatic: No Adenopathy Results/Procedures Lab Laboratory Tests 03/16/18 05:47 Patient resulted labs reviewed. Assessment/Plan Assessment and Plan Assess & Plan/Chief Complaint Assessment: Debility Status post uncomplicated lumbar spine surgery POD # 6 Acute fecal incontinence improving Chronic renal insufficiency with acute elevation of creatinine nonoliguric improved level today Postop anemia requiring blood transfusions 1 at [place] and the other yesterday COPD with chronic bronchitis Pacemaker Sick sinus syndrome requesting Cardiology consultation GERD Hypertension BPH Fever-resolved Wound drainage may benefit from wound vac Plan: Intensive therapies Monitor urinary output Check labs in morning Continue holding Plavix due to risk of hematoma formation but will restart now since ok with Dr Elmore Consult cardiology is appreciated but declines ECHO since he recently had one per patient? Monitor creatinine Home meds but hold hydrochlorothiazide, KENIA inhibitor, and decreased dose of metformin that he is insistent on taking in order to decrease chance of lactic acidosis in the setting of elevated creatinine Replace potassium Monitor fever only since workup negative and it appears to be resolved now (1) Debility (2) Pacemaker (3) Renal insufficiency (4) Anemia, posthemorrhagic, acute (5) Transfusion of blood during current hospitalization (6) Diabetes mellitus (7) Hypertension (8) COPD (chronic obstructive pulmonary disease) (9) Chronic bronchitis (10) Fever postop (11) H/O lumbosacral spine surgery (12) Delirium (13) Hypokalemia (14) BPH (benign prostatic hyperplasia) (15) Hyperlipidemia (16) GERD (gastroesophageal reflux disease) (17) Neuropathy (18) Fecal incontinence (19) SSS (sick sinus syndrome) (20) Hx TIA/stroke w/o resid Clinical Quality Measures DVT/VTE Risk/Contraindication: Risk Factor Score Per Nursin RFS Level Per Nursing on Admit: 4+=Very High MARC THURMAN DO Mar 16, 2018 12:51
[2018-03-16] MEDS: CLOPIDOGREL 75 MG (PLAVIX) TABLET PO SCH (13:15)
--- NOTE | 2018-03-16 16:11 | Progress Note-Cardiology ---
Cardiology SOAP Progress Note Subjective: No cp or palp or syncope or shortness of breath Objective: I&O/Vital Signs 03/16/18 03/16/18 03/16/18 03/16/18 05:49 08:32 10:54 14:55 Temp 99.1 Pulse 74 Resp 18 B/P (MAP) 128/63 (84) Pulse Ox 99 92 92 94 O2 Delivery Room Air Room Air Room Air Room Air 03/16/18 00:00 Intake Total 1900 ml Output Total 600 ml Balance 1300 ml Weight (Pounds): 200 Weight (Ounces): 0.0 Weight (Calculated Kilograms): [id number] Constitutional: AAO x 3, well-developed, well-nourished Respiratory: No accessory muscle use; other (good bilat air entry, diminished at the bases) Cardiovascular: regular rate-rhythm, S1 and S2, systolic murmur (soft HTA at card base) Gastrointestional: No tender; soft; No guarding, No rebound; audible bowel sounds Extremities: No clubbing, No cyanosis, No significant edema Neurologic/Psychiatric: oriented x 3, other (4/5 power in both legs) Skin: No rash on exposed areas, No ulcerations on exposed areas Results/Procedures: Labs Laboratory Tests 03/15/18 17:21: Glucometer 188H 03/15/18 20:26: Glucometer 250H 03/16/18 05:46: Glucometer 132H 03/16/18 05:47: White Blood Count 5.3, Red Blood Count 2.70L, Hemoglobin 7.8L, Hematocrit 24L, Mean Corpuscular Volume 89, Mean Corpuscular Hemoglobin 29, Mean Corpuscular Hemoglobin Concent 33, Red Cell Distribution Width 14.8H, Platelet Count 150, Mean Platelet Volume 11.1H, Neutrophils (%) (Auto) 75, Lymphocytes (%) (Auto) 16 , Monocytes (%) (Auto) 7, Eosinophils (%) (Auto) 2, Basophils (%) (Auto) 0, Neutrophils # (Auto) 3.9, Lymphocytes # (Auto) 0.9L, Monocytes # (Auto) 0.4, Eosinophils # (Auto) 0.1, Basophils # (Auto) 0.0, Erythrocyte Sedimentation Rate 75H, Sodium Level 140, Potassium Level 3.9, Chloride Level 111H, Carbon Dioxide Level 18L, Anion Gap 11, Blood Urea Nitrogen 44H, Creatinine 1.64H, Estimat Glomerular Filtration Rate 42, BUN/Creatinine Ratio 27, Glucose Level 121H, Calcium Level 8.1L, Corrected Calcium 9.0, Total Bilirubin 1.1H, Aspartate Amino Transf (AST/SGOT) 52H, Alanine Aminotransferase (ALT/SGPT) 108H , Alkaline Phosphatase 151H, C-Reactive Protein High Sensitivity 9.92H, Total Protein 5.3L, Albumin 2.9L 03/16/18 13:07: Glucometer 299H Laboratory Tests 03/14/18 19:25 03/15/18 05:22 03/16/18 05:47 A/P: Assessment: S/p lumbar spinal surgery on 03/10/18 Post-op anemia, stable. This is managed by Dr Trell De La Torre, including bilat leg weakness (apparently chronic) H/o pacemaker in [place], [place]. He states last pacemaker check was in Jan 2018. He states "heart block" led to his pacemaker about a year ago. He does not report h/o atrial fibrillation and states has never been on blood thinners other than Plavis. Also reports that heart arteries did not show blockage at w/ u at that time H/o ministrokes. 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
[2018-03-16] MEDS: TAMSULOSIN 0.4 MG (FLOMAX) CAP PO SCH (18:10)
[2018-03-16 18:41] VITALS: BP 146/63
--- NOTE | 2018-03-16 19:20 | NUR ---
bedside report received from LUIS STONE, assume care of pt
[2018-03-16] MEDS: TRESIBA FLEXTOUCH 200 UNITS/ML SC SCH (20:58)
--- NOTE | 2018-03-16 21:00 | NUR ---
assessments & interventions completed, see assessments & interventions, fsbs 224 pt refused NovoLog 6 units stated would take 4 units NovoLog & his tresiba 30 units
--- NOTE | 2018-03-16 21:20 | NUR ---
dressing change to lower back, moderate amt serous sanguinous drainage, island dressing applied
[2018-03-16] MEDS ORDERED: TRESIBA 30 UNIT SC SCH (22:00)
[2018-03-17] MEDS: RT-ALBUTEROL/IPRATROPIUM 3 ML (DUONEB) VIAL INH SCH ×8 (02:21→22:01)
[2018-03-17 05:45] VITALS: BP 136/63
[2018-03-17] MEDS: inSUlin ASPART (NovoLOG) 1 UNIT/0.01 ML (CHARGE PER UNIT) SC SCH ×4 (06:00→21:12)
--- NOTE | 2018-03-17 06:30 | NUR ---
up to bathroom with 1 person assist & walker
--- NOTE | 2018-03-17 06:40 | NUR ---
up to chair
[2018-03-17] MEDS: PANTOPRAZOLE 40 MG (PROTONIX) TAB PO SCH ×2 (06:42→21:09)
[2018-03-17] MEDS: KCL 10 MEQ TAB (MICRO K) PO SCH (06:42)
[2018-03-17] MEDS: metFORMIN 500 MG (GLUCOPHAGE) TAB PO SCH ×2 (06:42→17:10)
--- NOTE | 2018-03-17 07:15 | NUR ---
bedside report given to FRANCHESKA STONE
[2018-03-17] MEDS: NS IV 1000 ML 1,000 ML IV SCH (07:28)
--- NOTE | 2018-03-17 08:18 | PM&R Progress Note ---
Subjective HPI/CC On Admission Date Seen by Provider: Mar 17, 2018 Time Seen by Provider: 08:00 CC: Debility following lumbar spine surgery uncomplicated by Dr Elmore at [facility] HPI: This is a 67-year-old who had an uncomplicated lumbar spine surgery by Dr. Elmore on 03/10/18 at [facility] who had a complicated postoperative course requiring 1 unit of blood and postop fever with chest x- ray revealing atelectasis and significant delirium with worsening creatinine requiring inpatient rehabilitation at the full-service hospital. His delirium has improved a great deal but still slightly slowed responses at times. Fecal incontinence will be managed while in rehabilitation hospital stay. Creatinine remained stable at 2.0. I have asked cardiology consultation in case patient has a rhythm disturbance while hospitalized here at the hospital. Dr. Kahn is his rubber insulator. Dr Laws is his PCP. Subjective/Events-last exam Dr Elmore saw the patient yesterday and will see him today and give him a pep talk since he did not want to participate in occupational therapy today but that is part of the deal of admission to an inpatient rehabilitation unit those hours must be completed May benefit from wound vac so I spoke to Dr Arndt yesterday and he will see the patient today Restarted his Tresiba 2 days ago Incision site looks slightly pink but instead of an antibiotic and since fever is now resolved we are thinking the wound VAC would be a better choice so we will await for Dr. Arndt No fecal incontinence now HLIVF Using incentive spirometer Overall much improved and creatinine much improved but labs will be checked when drawn this morning We will Hep-Lock IV fluids since eating and drinking well Review of Systems Musculoskeletal: back pain Focused Exam Lactate Level 03/14/18 19:25: Lactic Acid Level 1.14 Objective Exam Vital Signs Vital Signs Date Time Temp Pulse Resp B/P (MAP) Pulse Ox O2 Delivery O2 Flow Rate FiO2 03/17/18 06:28 92 Room Air 03/17/18 05:45 98.8 74 16 136/63 (87) Capillary Refill : General Appearance: No Apparent Distress HEENT: PERRL/EOMI, TMs Normal, Normal ENT Inspection, Pharynx Normal, Moist Mucous Membranes Neck: Supple Respiratory: No Accessory Muscle Use, No Respiratory Distress, Crackles ( Coarse breath sounds in the bases), Decreased Breath Sounds Cardiovascular: Normal Peripheral Pulses Gastrointestinal: Normal Bowel Sounds, No Organomegaly, No Pulsatile Mass, Non Tender, Soft Back: Decreased Range of Motion, Other (dressing intact) Extremity: Normal Capillary Refill, No Calf Tenderness Neurologic/Psychiatric: Alert, Oriented x3, No Motor/Sensory Deficits, Other ( no confusion now) Skin: Normal Color, Warm/Dry Lymphatic: No Adenopathy Results/Procedures Lab Patient resulted labs reviewed. Assessment/Plan Assessment and Plan Assess & Plan/Chief Complaint Assessment: Debility Status post uncomplicated lumbar spine surgery POD # 7 Acute fecal incontinence improving Chronic renal insufficiency with acute elevation of creatinine nonoliguric improved level today with pending labs today Postop anemia requiring blood transfusions 1 at [place] and the other 2 days ago COPD with chronic bronchitis and coarseness of bilateral bases on lung exam continues Pacemaker Sick sinus syndrome requesting Cardiology consultation GERD Hypertension BPH Fever-resolved Wound drainage may benefit from wound vac Transient noncompliant with therapy requirement that now appears to be participating in Dr. Elmore will provide support for that also today Plan: Intensive therapies Monitor urinary output Check labs today Restarted Plavix per Dr. ELMORE approval because it was being held due to risk of hematoma formation Consult cardiology is appreciated Monitor creatinine Home meds but hold hydrochlorothiazide, KENIA inhibitor, and decreased dose of metformin that he is insistent on taking in order to decrease chance of lactic acidosis in the setting of elevated creatinine Replace potassium Monitor fever only since workup negative and it appears to be resolved now Obtain creatinine level most recent from primary care provider office Await Dr. Arndt regarding wound VAC necessity (1) Debility (2) Pacemaker (3) Renal insufficiency (4) Anemia, posthemorrhagic, acute (5) Transfusion of blood during current hospitalization (6) Diabetes mellitus (7) Hypertension (8) COPD (chronic obstructive pulmonary disease) (9) Chronic bronchitis (10) Fever postop (11) H/O lumbosacral spine surgery (12) Delirium (13) Hypokalemia (14) BPH (benign prostatic hyperplasia) (15) Hyperlipidemia (16) GERD (gastroesophageal reflux disease) (17) Neuropathy (18) Fecal incontinence (19) SSS (sick sinus syndrome) (20) Hx TIA/stroke w/o resid Clinical Quality Measures DVT/VTE Risk/Contraindication: Risk Factor Score Per Nursin RFS Level Per Nursing on Admit: 4+=Very High MARC THURMAN DO Mar 17, 2018 08:18
[2018-03-17] MEDS: CLOPIDOGREL 75 MG (PLAVIX) TABLET PO SCH (08:47)
[2018-03-17] MEDS: GABAPENTIN 300 MG (NEURONTIN) CAP PO SCH ×2 (08:47→21:09)
[2018-03-17] MEDS: amLODIPine 10 MG (NORVASC) TAB PO SCH (08:47)
[2018-03-17] MEDS: guaiFENesin (MUCINEX) 600 MG TAB PO SCH ×2 (08:47→21:09)
[2018-03-17 10:05] LABS: BASOPHILS % (AUTO) 0 % (0-10); EOSINOPHILS # (AUTO) 0.1 10^3/uL (0.0-0.3); EOSINOPHILS % (AUTO) 1 % (0-10); HEMATOCRIT 28 % (40-54); HEMOGLOBIN 9.1 G/DL (13.3-17.7); LYMPHOCYTES # (AUTO) 0.7 X 10^3 (1.0-4.0); LYMPHOCYTES % (AUTO) 9 % (12-44); MEAN CORPUSCULAR HEMOGLOBIN 29 PG (25-34); MEAN CORPUSCULAR HGB CONC 32 G/DL (32-36); MEAN CORPUSCULAR VOLUME 90 FL (80-99); MEAN PLATELET VOLUME 10.5 FL (7.4-10.4); MONOCYTES # (AUTO) 0.4 X 10^3 (0.0-1.0); MONOCYTES % (AUTO) 6 % (0-12); NEUTROPHILS # (AUTO) 6.3 X 10^3 (1.8-7.8); NEUTROPHILS % (AUTO) 85 % (42-75); PLATELET COUNT 201 10^3/uL (130-400); RED CELL DISTRIBUTION WIDTH 14.8 % (10.0-14.5); WHITE BLOOD COUNT 7.5 10^3/uL (4.3-11.0)
--- NOTE | 2018-03-17 10:10 | ST Cognitive Linguistic Eval ---
Speech Evaluation-General Medical Diagnosis s/p L3-5 lumbar fusion Onset Date: Mar 10, 2018 Therapy Diagnosis Therapy Diagnosis: Cognitive-Communication Precautions Precautions/Isolations: Fall Prevention, Standard Precautions, Pressure Ulcer Medical History Pertinent Medical History: DM, HTN Reviewed History: Yes Social History Current Living Status: Significant Other Speech PLF-Current Status Prior Level of Function Patient lived at home with his where he was independent for most of his daily tasks. Subjective Patient was pleasant and cooperative during the cognitive evaluation process. Language Eval: Auditory Comprehends Simple Yes/No Ques: Functional Indent/Objects Multiple Gibson: Functional Ident/Pics in Multiple Gibson: Functional Follows 1-Step Commands: Functional Follows Complex Directions: Functional Follows General Conversations: Functional Language Eval: Verbal Language Completes Spontaneous Greeting: Functional Produces Auto, Serial Info: Functional Imitates Simple Words/Phrases: Functional Word Finding: Functional Requests Basic Needs: Functional States Basic Personal Info: Functional Expresses Complex Ideas: Functional Cognitive Patient Orientation Patient is oriented to all concepts. Objective Cognitive Domain Attention: WNL Memory: WNL Problem Solving: Functional Executive Functions: WNL Visuospatial Skills: WNL Objective Formal/Standardized Tests [facility] Cognitive/Communication Results Memory: Immediate 3/3, Delayed 3/3, Orientation 3/3, Problem Solving Simple 5/5 , Complex 5/5, Auditory Processing 5/5 Oral Motor/Speech Production Within Functional Limits Impression Patient is a pleasant 67 year old male who was admitted to the ARU due to back surgery. Patient was able to complete the cognitive evaluation without difficulty. No repetitions were needed. Patient was noted to be a good historian and engaged well with general conversation, Communication/Social Cognition Comprehension: 7 Expression: 7 Social Interaction: 7 Problem Solvin Memory: 7 Speech Patient Assess Expression of Ideas/Wants: Expression (4) Understanding Verbal Content: Understands (4) Brief Interview-Mental Status: Yes Repetition of Three Words: Three (3) Temporal Orientation: Year: Correct (3) Temporal Orientation: Day: Correct (1) Recall : Wear to say "Sock": Yes, no cue required (2) Recall : Color: Yes, no cue required (2) Recall : Bed: Yes, no cue required (2) Memory/Recall Ability: Current season, Staff names and faces, That he or she is in a hsp/hsp unit Speech-Plan Patient/Family Goals Patient/Family Goals: Patient plans to return home with his post rehab. Treatment Plan Speech Therapy Treatment Plan: Discontinue ST Skilled ST services are not recommended for the patient at this time. Treatment Duration: Mar 17, 2018 Frequency: 1 time per week Estimated Hrs Per Day: .25 hour per day Rehab Potential: Good Barriers to Learning: Patient is limited in his mobility. Pt/Family Agrees to Plan: Yes Safety Risks/Education Teaching Recipient: Patient Teaching Methods: Discussion Response to Teaching: Verbalize Understanding Education Topics Provided: Safety within his room. Time Speech Therapy Time In: 09:45 Speech Therapy Time Out: 10:00 Total Billed Time: 15 Billed Treatment Time 1, SPSNDCOMP SUNSHINE Mosley Mar 17, 2018 10:10
--- NOTE | 2018-03-17 10:23 | Occupational Ther Daily Note ---
OT Current Status-Daily Note Subjective Pt sitting in his recliner , therapist introduce himself. Pt agree for OT, " Pt stated, " I am fine ." My did all my dressing & shower yesterday. I am strong , I don't need any thing today." Pain Numeric Pain Scale: 6 Location: Lower Location Body Site: Back Pain Description: Ache, Throbbing Mental Status/Objective Patient Orientation: Person, Place, Time Therapy Code Descriptions/Definitions Functional [place] Measure: 0=Not Assessed/NA 4=Minimal Assistance 1=Total Assistance 5=Supervision or Setup 2=Maximal Assistance 6=Modified [place] 3=Moderate Assistance 7=Complete [place] Attachments: IV ADL-Treatment Initially pt was not at all ready for shower retraining or sponge bath , or dressing retraining with AD, He explained therapist that his does everything for him shower & dressing & he don't need to learn anymore & he knows that how to use socks aid & Disassembler Product because he had both Hip replacement. This therapist tried to explain him the importance of precautions after back surgery & the use of AD to prevent strain & bending on the back will help fast recovery & decrease back pain. Our Veneer Sander tried to explain the patient the importance of Therapy to get fast recovery & to get independence rather than depending on his to assist him in all ADL.s. Pt agree for the therapy. Pt participated in sponge bath . Pt wipe face , both arms, front of chest & abdomen, wipes his upper legs , yayo & doff his pajama to wipe legs with warm Ready-Bath wipes.,brush hairs, rinse mouth at sink in standing with FWW. Ambulate with FWW to therapy Gym & participated 10 min on Arm bikes & 30 reps x 2 sets x red theraband BUE in all planes of motion without strain on back . Pt was cooperative at the end .Returned back to his room with FWW. Pt fatigue soon & needs frequent rest period between each activity. Therapy Code Descriptions/Definitions Functional [place] Measure: 0=Not Assessed/NA 4=Minimal Assistance 1=Total Assistance 5=Supervision or Setup 2=Maximal Assistance 6=Modified [place] 3=Moderate Assistance 7=Complete [place] Therapy Quality Codes: 6 Independent with activity with or without an assistive device 5 Patient requires set up or clean up by helper. Patient completes activity by themselves 4 Supervision or touching assist (CGA). [place] provide cues , steadying assist 3 The helper provides less than half the effort to complete the activity 2 The helper provides more than half the effort to complete the activity 1 Dependent. The helper does all the effort to complete an activity 7 Patient refused to complete or attempt activity 9 The patient did not perform the activity before the current illness or injury 88 Not attempted due to Medical conditions or safety concerns Eating (FIM): 7 Eating (QC): 6 Grooming (FIM): 6 Oral Hygiene (QC): 6 Bathing (FIM): 5 Bathing Location: L Arm, R Arm, L Upper Leg, R Upper Leg, Chest, Abdomen, Buttocks, Perineal Area Upper Body Dressing (QC): 5 Lower Body Dressing (FIM): 4 Lower Body Dressing (QC): 4 On/Off Footwear (QC): 6 Toileting (FIM): 5 Toileting Hygiene (QC): 5 Transfers (B, C, W/C) (FIM): 6 (with FWW) Toilet/Commode Transfer (FIM): 6 Toilet Transfer (QC): 6 Tub Transfer(FIM): 0 Shower Transfer(FIM): 0 Education OT Patient Education: Correct positioning, Instructions don/doff splint/brace, Modified ADL techniques, Safety issues, Use of adapted equipment Teaching Recipient: Patient Teaching Methods: Demonstration Response to Teaching: Verbalize Understanding OT Short Term Goals Short Term Goals Time Frame: Mar 22, 2018 Bathing(FIM): 4 Lower Body Dressing(FIM): 5 Transfers (B,C,W/C) (FIM): 5 1=Demonstrate adherence to instructed precautions during ADL tasks. 2=Patient will verbalize/demonstrate understanding of assistive devices/ modifications for ADL. 3=Patient will improve strength/tolerance for activity to enable patient to perform ADL's. OT Surface Boss Goals Surface Boss Goals Time Frame: Mar 29, 2018 Eating (FIM): 6 Eating (QC): 6 Groomin Oral Hygiene (QC): 6 Bathing(FIM): 5 Shower/Bathe Self (QC): 5 Upper Body Dressing(FIM): 6 Upper Body Dressing (QC): 6 Lower Body Dressing(FIM): 6 Lower Body Dressing (QC): 6 On/Off Footwear (QC): 6 Toileting(FIM): 6 Toileting Hygiene (QC): 6 Toilet/Commode Transfer(FIM): 6 Toilet/Commode Transfer (QC): 6 Shower Transfer(FIM): 5 Additional Goals: 1-Demonstrate ADL Tasks, 2-Verbalize Understanding, 3- ImproveStrength/Isaac 1=Demonstrate adherence to instructed precautions during ADL tasks. 2=Patient will verbalize/demonstrate understanding of assistive devices/ modifications for ADL. 3=Patient will improve strength/tolerance for activity to enable patient to perform ADL's. OT Education/Plan Problem List/Assessment Assessment: Decreased Activ Tolerance, Decreased Safety Aware, Decreased UE Strength, Impaired Funct Balance, Impaired Self-Care Skills Pt to benefit from skilled OT intervention for ADL training, transfers, strengthening, adaptive equipment education, and home safety education to increase functional independence and allow safe discharge home. Discharge Recommendations Plan/Recommendations: Continue POC Therapy D/C Recommendations: Home w/ Family Support, Occupational Therapy Home Care Equpiment Recommendations-D/C: Rails on Tub/Shower, Bath Chair, Extended Shower Sprayer, Disassembler Product, Sock Aide Barriers to Progress Recent back surgery & pain in lower back. Patient/Family Goals To return home Independently with & to take care of cattles. Treatment Plan/Plan of Care Treatment,Training & Education: Yes Patient would benefit from OT for education, treatment and training to promote independence in ADL's, mobility, safety and/or upper extremity function for ADL' s. Plan of Care: ADL Retraining, Functional Mobility, Group Exercise/Act as Ind, UE Funct Exercise/Act Treatment Duration: Mar 29, 2018 Frequency: At least 5 of 7 days/Wk (IRF) Estimated Hrs Per Day: 1.5 hours per day Agreement: Yes Rehab Potential: Good Time/GCodes Start Time: 08:00 Stop Time: 09:30 Total Time Billed (hr/min): 90 Billed Treatment Time 1, ADLs 60 min , Ex 30 min . Total 90 min. BHANU MENDIETA OT Mar 17, 2018 10:23
[2018-03-17 10:27] LABS: ALBUMIN 3.3 GM/DL (3.2-4.5); BILIRUBIN,TOTAL 0.9 MG/DL (0.1-1.0); CALCIUM 8.7 MG/DL (8.5-10.1); CREATININE SERUM 1.58 MG/DL (0.60-1.30); POTASSIUM 3.7 MMOL/L (3.6-5.0); TOTAL PROTEIN 6.2 GM/DL (6.4-8.2)
--- NOTE | 2018-03-17 11:06 | Physical Therapy Daily Note ---
PT Daily Note-Current Subjective Patient in recliner pre tx, agrees to PT but seems angry, states he has little to no pain. Appearance Patient in recliner post tx with nurse call, phone, tray, all needs met. Mental Status Patient Orientation: Person back brace Transfers Therapy Code Descriptions/Definitions Functional [place] Measure: 0=Not Assessed/NA 4=Minimal Assistance 1=Total Assistance 5=Supervision or Setup 2=Maximal Assistance 6=Modified [place] 3=Moderate Assistance 7=Complete [place] Therapy Quality Codes: 6 Independent with activity with or without an assistive device 5 Patient requires set up or clean up by helper. Patient completes activity by themselves 4 Supervision or touching assist (CGA). [place] provide cues , steadying assist 3 The helper provides less than half the effort to complete the activity 2 The helper provides more than half the effort to complete the activity 1 Dependent. The helper does all the effort to complete an activity 7 Patient refused to complete or attempt activity 9 The patient did not perform the activity before the current illness or injury 88 Not attempted due to Medical conditions or safety concerns Transfers (B, C, W/C) (FIM): 5 Sit to/from Stand: 5 Bed to/from Chair: 5 slow, but appropriate hand placement Weight Bearing Weight Bearing/Tolerated Weight Bearing/Tolerated Gait Training Gait (FIM): 5 Distance: 150'x2 Gait Level of Assist: 5 Gait Persons Needed: 1 Gait Assistive Device: FWW Slow but steady ambulation, patient keeps right knee extended and advances with hip. Exercises Standing: Heel/toe raises, Marching, Mini squats Standing Reps: 15 LAQ alternating for 5 min NuStep Minutes: 15 NuStep Workload: 4 Treatments transfers, ambulation, functional strengthening, Patient had to use the bathroom for a BM, he needed assist with wiping. Assessment Current Status: Fair Progress improving ambulation, patient needs frequent rest breaks due to fatigue, has trouble moving right leg due to weakness PT Short Term Goals Short Term Goals Time Frame: Mar 29, 2018 Transfers (B,C,W/C) (FIM): 5 Gait (FIM): 5 Distance (FIM): 3=150 ft Gait Level of Assist: 5 Gait Assistive Device: FWW PT Fpc Goals Clinical Nursing Instructor Goals PT Clinical Nursing Instructor Goals Time Frame: Apr 12, 2018 Transfers (B,C,W/C) (FIM): 7 Sit to Lying (QC): 7 Lying-Sitting on Side/Bed(QC): 7 Sit to Stand (QC): 7 Rollin Roll Left to Right (QC): 7 Chair/Vzv-qd-Onwhp Xfer(QC): 7 Car Transfer (QC): 7 Does the Patient Walk: Yes Gait (FIM): 6 Gait distance (FIM): 3=150 ft Distance: 500' Walk 10 feet (QC): 7 Walk 10ft-Uneven Surface(QC): 7 Walk 50ft with 2 Turns (QC): 7 Walk 150 ft (QC): 7 Gait Level of Assist: 6 Gait Assistive Device: FWW PT Plan Problem List Problem List: Activity Tolerance, Functional Strength, Safety, Balance, Gait, Transfer, Bed Mobility, ROM Treatment/Plan Treatment Plan: Continue Plan of Care Treatment Plan: Bed Mobility, Concurrent Therapy, Education, Functional Activity Isaac, Functional Strength, Group Therapy, Gait, Therapeutic Exercise, Transfers Treatment Duration: Apr 12, 2018 Frequency: At least 5 of 7 days/Wk (IRF) Estimated Hrs Per Day: 1.5 hours per day Patient and/or Family Agrees t: Yes Safety Risks/Education Patient Education: Gait Training, Transfer Techniques, Reviewed Precautions, Correct Positioning, Reviewed Don/Doff Brace, Disease Process, Safety Issues Teaching Recipient: Patient Teaching Methods: Demonstration, Discussion Response to Teaching: Reinforcement Needed Time/GCodes Time In: 1000 Time Out: 1100 Total Billed Treatment Time: 60 Total Billed Treatment 1 visit FA 15' GT 20' EX 25' LARA CEDILLO PT Mar 17, 2018 11:06
--- NOTE | 2018-03-17 13:22 | Physical Therapy Daily Note ---
PT Daily Note-Current Subjective "I'm comfortable right where I am." (Pt in bed) Pt smiles and agrees to PT. Mental Status Patient Orientation: Person, Place, Time, Situation Transfers Therapy Code Descriptions/Definitions Functional [place] Measure: 0=Not Assessed/NA 4=Minimal Assistance 1=Total Assistance 5=Supervision or Setup 2=Maximal Assistance 6=Modified [place] 3=Moderate Assistance 7=Complete [place] Therapy Quality Codes: 6 Independent with activity with or without an assistive device 5 Patient requires set up or clean up by helper. Patient completes activity by themselves 4 Supervision or touching assist (CGA). [place] provide cues , steadying assist 3 The helper provides less than half the effort to complete the activity 2 The helper provides more than half the effort to complete the activity 1 Dependent. The helper does all the effort to complete an activity 7 Patient refused to complete or attempt activity 9 The patient did not perform the activity before the current illness or injury 88 Not attempted due to Medical conditions or safety concerns Transfers (B, C, W/C) (FIM): 4 Supine to/from Sit: 4 Sit to Stand (QC): 4 Slightly unsteady with transition to stand up. Back brace in situ during treatment Weight Bearing Weight Bearing/Tolerated Weight Bearing/Tolerated Gait Training Does the Patient Walk?: Yes Gait (FIM): 4 Distance (FIM): 3=150 ft Distance: 400 ft x 2 Gait Assistive Device: FWW forward flexed with gait with decreased step length. Treatments Pt toileted, urinated standing up, with SBA. Stood at sink to wash his hands with SBA. Assessment Current Status: Good Progress Unsteady gait with ambulation; pt loses balance at times but is able to self correct. PT Short Term Goals Short Term Goals Time Frame: Mar 29, 2018 Transfers (B,C,W/C) (FIM): 5 Gait (FIM): 5 Distance (FIM): 3=150 ft Gait Level of Assist: 5 Gait Assistive Device: FWW PT Chcf Goals Employment Recruiter Goals PT Chcf Goals Time Frame: Apr 12, 2018 Transfers (B,C,W/C) (FIM): 7 Sit to Lying (QC): 7 Lying-Sitting on Side/Bed(QC): 7 Sit to Stand (QC): 7 Rollin Roll Left to Right (QC): 7 Chair/Zqv-xs-Cnoeb Xfer(QC): 7 Car Transfer (QC): 7 Does the Patient Walk: Yes Gait (FIM): 6 Gait distance (FIM): 3=150 ft Distance: 500' Walk 10 feet (QC): 7 Walk 10ft-Uneven Surface(QC): 7 Walk 50ft with 2 Turns (QC): 7 Walk 150 ft (QC): 7 Gait Level of Assist: 6 Gait Assistive Device: FWW PT Plan Problem List Problem List: Activity Tolerance, Functional Strength, Safety, Balance, Gait, Transfer, Bed Mobility Treatment/Plan Treatment Plan: Continue Plan of Care Treatment Plan: Bed Mobility, Concurrent Therapy, Education, Functional Activity Isaac, Functional Strength, Group Therapy, Gait, Therapeutic Exercise, Transfers Treatment Duration: Apr 12, 2018 Frequency: At least 5 of 7 days/Wk (IRF) Estimated Hrs Per Day: 1.5 hours per day Patient and/or Family Agrees t: Yes Safety Risks/Education Patient Education: Transfer Techniques, Safety Issues Teaching Recipient: Patient Teaching Methods: Discussion Response to Teaching: Reinforcement Needed Time/GCodes Time In: 1245 Time Out: 1318 Total Billed Treatment Time: 33 Total Billed Treatment visit GT 33 JUSTO GRANT PT Mar 17, 2018 13:22
[2018-03-17] MEDS: TAMSULOSIN 0.4 MG (FLOMAX) CAP PO SCH (17:10)
[2018-03-17 18:00] VITALS: BP 151/71
--- NOTE | 2018-03-17 18:08 | Wound Care Assessment ---
Wound Care Assessment Date Seen by Provider: Mar 17, 2018 Time Seen by Provider: 18:02 Chief Complaint L buttock ulcer. HPI The patient is a 67 year old male one week s/p lumbar laminectomy for spinal stenosis. Asked to see in regards to L buttock ulcer and NPWT management for lumbar incision. Orders for barrier cream, off-loading, and SAYRA device written. Plan/intent discussed/explained to patient. Smoking Status: Former Smoker Recreational Drug Use: No Alcohol Use: Denies Use Exam Vital Signs Date Time Temp Pulse Resp B/P (MAP) Pulse Ox O2 Delivery O2 Flow Rate FiO2 03/17/18 10:53 92 Room Air 03/17/18 05:45 98.8 74 16 136/63 (87) Capillary Refill : Skin: other (L buttock -- 1.0 x 3.2 x 0.1 cm, base 25 % slough, 75% regenerating tissue., sanguinous drainage.) Results Laboratory Tests 03/16/18 20:46: Glucometer 224H 03/17/18 05:47: Glucometer 154H 03/17/18 09:55: White Blood Count 7.5, Red Blood Count 3.15L, Hemoglobin 9.1L, Hematocrit 28L, Mean Corpuscular Volume 90, Mean Corpuscular Hemoglobin 29, Mean Corpuscular Hemoglobin Concent 32, Red Cell Distribution Width 14.8H, Platelet Count 201, Mean Platelet Volume 10.5H, Neutrophils (%) (Auto) 85H, Lymphocytes (%) (Auto) 9L, Monocytes (%) (Auto) 6, Eosinophils (%) (Auto) 1, Basophils (%) (Auto) 0, Neutrophils # (Auto) 6.3, Lymphocytes # (Auto) 0.7L, Monocytes # (Auto) 0.4, Eosinophils # (Auto) 0.1, Basophils # (Auto) 0.0, Sodium Level 140, Potassium Level 3.7, Chloride Level 110H, Carbon Dioxide Level 18L, Anion Gap 12, Blood Urea Nitrogen 34H, Creatinine 1.58H, Estimat Glomerular Filtration Rate 44, BUN/ Creatinine Ratio 22, Glucose Level 290H, Calcium Level 8.7, Corrected Calcium 9.3, Total Bilirubin 0.9, Aspartate Amino Transf (AST/SGOT) 31, Alanine Aminotransferase (ALT/SGPT) 94H, Alkaline Phosphatase 164H, Total Protein 6.2L, Albumin 3.3 03/17/18 11:56: Glucometer 282H 03/17/18 17:09: Glucometer 179H Assessment/Plan/Dx 1. Pressure ulcer, L buttock, Stage 2. 2. S/P lumbar operation, with healing wound -- asked to oversee SAYRA use while here. HAILY NIX MD Mar 17, 2018 18:08
--- NOTE | 2018-03-17 19:42 | Individualized Plan of Care ---
Individualized Plan of Care Rehab Nursing IPOC Order Admission Date Mar 14, 2018 at 16:50 Current Orders Orders Admission Order(Inpt,Obs,Sdc) (03/14/18 16:03) Vital Signs: Routine (Order) 08,16,00 (03/14/18 16:03) Starch Dumper-Inpt Rehab Con (03/14/18 16:03) Rehab Nursing Orders-Ipoc (03/14/18 16:03) Physical Therapy Rehab Orders (03/14/18 16:03) Occupational Therapy Rehab Ord (03/14/18 16:03) Speech Therapy Rehab Orders (03/14/18 16:03) Comprehensive Metabolic Panel (03/14/18 16:03) Urinalysis (03/14/18 17:50) Cho 60g/M 1snack (16-2000 David) (03/14/18 Dinner) Intake & Output 06,14,22 (03/14/18 16:03) Precautions (Aru) (03/14/18 16:03) Weekly Weight (Lbs) WEEK (03/14/18 16:03) Rehab-Intensity Of Therapy (03/14/18 16:03) Acetaminophen Tablet (Tylenol Tablet) (03/14/18 16:15) Ibuprofen Tablet (Motrin Tablet) (03/14/18 16:15) Alprazolam Tablet (Xanax Tablet) (03/14/18 16:15) Calcium Carbonate Chew Tablet (Antacid C (03/14/18 16:15) Diphenhydramine Tablet (Benadryl Tablet) (03/14/18 16:15) Docusate Sodium Capsule (Colace Capsule) (03/14/18 16:15) Loperamide Capsule (Imodium Capsule) (03/14/18 16:15) Ondansetron Oral Dissolve Tab (Zofran (03/14/18 16:15) Type And Screen (03/14/18 16:03) Code/Resuscitation (03/14/18 16:03) Initiate Admission Nursing Pro .admission (03/14/18 16:03) Albuterol/Ipra Inhalation Soln (Duoneb I (03/14/18 18:00) Svn Small Volume Nebulizer (03/14/18 16:03) Cbc With Automated Diff (03/14/18 17:11) Lactic Acid Analyzer (03/14/18 17:11) Ns Iv 1000 Ml (Sodium Chloride 0.9%) (03/14/18 17:15) Troponin I (03/14/18 17:11) BNP (03/14/18 17:11) Ekg Tracing (03/14/18 17:11) Accucheck Achs ACHS (03/14/18 17:11) Insulin Aspart (Novolog) (Novolog (Charg (03/14/18 21:00) Incentive Spirometry Initial (03/14/18 17:11) Incentive Spirometry (Nursing) Q2H (03/14/18 17:11) Chest Pa/Lat (2 View) (03/14/18 ) Hydrocodone/Apap 5/325 Tablet (Lortab 5 (03/14/18 17:45) Pantoprazole Tablet (Protonix Tablet) (03/14/18 21:00) Metformin Tablet (Glucophage Tablet) (03/15/18 07:00) Insulin Determir (Per Unit) (Levemir (Pe (03/14/18 21:00) Tamsulosin Capsule (Flomax Capsule) (03/14/18 18:00) D5 Ns 1000 Ml Iv Solution (Dextrose 5%/0 (03/14/18 20:45) Ambulate 08,12,20 (03/14/18 20:51) Sequential Compression Device 08,20 (03/14/18 20:51) Dvt/Vte Risk - Notifiy Physici 08 (03/14/18 20:51) Iron Test (Fe) (03/14/18 21:15) Ammonia (03/15/18 06:00) Cbc With Automated Diff (03/15/18 06:00) Comprehensive Metabolic Panel (03/15/18 06:00) Consult Physician (03/14/18 21:16) BNP (03/15/18 05:00) Thyroid Stimulating Hormone (03/15/18 05:00) D5 Ns 1000 Ml Iv Solution (Dextrose 5%/0 (03/14/18 20:45) Vital Signs: Special (Order) (03/15/18 06:03) Consent-Obtain Consent For (03/15/18 06:03) Monitor S/S Transfusion Reacti (03/15/18 06:03) Ns Iv 500 Ml (Sodium Chloride 0.9%) (03/15/18 06:03) Red Cells Leukocytes Reduced (03/15/18 06:03) Potassium Chloride (Tablet) (Klor Con Ta (03/15/18 10:30) Potassium Chloride (Tablet) (Klor Con Ta (03/16/18 07:00) Hip, Right, 2 Views (03/15/18 10:30) Cbc With Automated Diff (03/16/18 06:00) Comprehensive Metabolic Panel (03/16/18 06:00) Gabapentin Capsule/Tablet (Neurontin Cap (03/15/18 21:00) Tamsulosin Capsule (Flomax Capsule) (03/16/18 09:00) (Nf) Amlodipine Besylate (03/16/18 09:00) Insulin Determir (Per Unit) (Levemir (Pe (03/15/18 21:00) Amlodipine Tablet (Norvasc Tablet) (03/15/18 11:00) Guaifenesin Tablet (Mucinex Tablet) (03/15/18 11:15) Gabapentin Capsule/Tablet (Neurontin Cap (03/15/18 11:30) Patient Visit (03/15/18 ) Pt Eval Low Complexity (03/15/18 ) Gait Training, Ea 15 Min (03/15/18 ) Exercise Therap, Ea 15 Min (03/15/18 ) Functional Activities, Ea 15 (03/15/18 ) Clopidogrel Tablet (Plavix Tablet) (03/16/18 09:00) Erythrocyte Sedimentation Rate (03/16/18 06:00) Hs C Reactive Protein (03/16/18 06:00) Abdomen, Flat & Upright/Decub (03/16/18 08:00) (Nf) Tresiba (Prefilled Pen) (03/16/18 22:00) Lumbar Spine - 2-3 Views (03/16/18 07:35) (Nf) Tresiba (Prefilled Pen) (03/16/18 22:00) Consult Physician (03/16/18 14:01) Cbc With Automated Diff (03/17/18 07:53) Comprehensive Metabolic Panel (03/17/18 07:53) Cbc With Automated Diff (03/18/18 06:00) Comprehensive Metabolic Panel (03/18/18 06:00) Dressing Order & Int (Surg/Med TID PRN (03/17/18 11:44) Patient Visit (03/17/18 ) Exercise Therap, Ea 15 Min (03/17/18 ) Gait Training, Ea 15 Min (03/17/18 ) Functional Activities, Ea 15 (03/17/18 ) Patient Visit (03/17/18 ) Speech Sound Lang Comp (03/17/18 ) Patient Visit (03/17/18 ) Gait Training, Ea 15 Min (03/17/18 ) Advanced Wound Care Dressing O TID PRN (03/17/18 17:54) Nursing Communication (Order) WEEK (03/17/18 17:54) Rehab Nursing Orders: Ongoing Assess. of Function Status, Bladder Management, Bowel Management, Bowel Training, Disease Management & Educaiton, DVT Prophylaxis, Fluid/Electrolyte/Nutrition Mgmt, Infection Prevention, Medication Management & Education, Management of Risks & Complications, Management of Skin Intergrity, Nutrition Management, Pain Management, Patient/Family Support, Wound Management Intensity of Therapy to be met Patient to be seen: Min.3h per day/5 of 7d PT IPOC Problem List: Activity Tolerance, Functional Strength, Safety, Balance, Gait, Transfer, Bed Mobility Treatment Plan: Continue Plan of Care Bed Mobility, Concurrent Therapy, Education, Functional Activity Isaac, Functional Strength, Group Therapy, Gait, Therapeutic Exercise, Transfers Treatment Duration: Apr 12, 2018 Frequency: At least 5 of 7 days/Wk (IRF) Estimated Hrs Per Day: 1.5 hours per day OT IPOC Problems: Decreased Activ Tolerance, Decreased Safety Aware, Decreased UE Strength, Impaired Funct Balance, Impaired Self-Care Skills OT Treatment, Training and Edu: Yes OT Problems Pt to benefit from skilled OT intervention for ADL training, transfers, strengthening, adaptive equipment education, and home safety education to increase functional independence and allow safe discharge home. Plan of Care: ADL Retraining, Functional Mobility, Group Exercise/Act as Ind, UE Funct Exercise/Act Treatment Duration: Mar 29, 2018 Frequency: At least 5 of 7 days/Wk (IRF) Estimated Hrs Per Day: 1.[address] IPOC Speech Therapy Treatment Plan: Discontinue ST Treatment Duration: Mar 17, 2018 Frequency: 1 time per week Estimated Hrs Per Day: .25 hour per day Starch Dumper/Case Mgmt Starch Dumper/Case Managemen: Discharge Planning Dietitian/Life Specialist Dietitian/Life Specialist to monitor nutritional status and make changes and/or recommendations as needed and work with speech pathology on dietary upgrades as the occur. Physician IPOC Medical Issues being managed closely and that require the 24 hour availability of a physician: Monitor renal function due to renal failure Fall prevention Monitor hemoglobin Monitor fever and coarse breath sounds Medical Issues: Bowel/Bladder Function, DVT Prophylaxis, Falls Precautions, Fluid/Electrolyte/Nutrition Balance, Infection Protection, Pain Management, Wound Care Brief Synthesis of Preadmission Screen, Post-Admission Evaluation, and Therapy Evaluations: Medical Prognosis: good Anticipated Length of Stay: 7 days MARC THURMAN DO Mar 17, 2018 19:42
--- NOTE | 2018-03-17 21:00 | NUR ---
assessments & interventions completed, see assessments & interventions, fsbs 224, advised this nurse would take NovoLog 4 units instead of 6 due & would take tresiba 30 uni
[2018-03-17] MEDS: TRESIBA FLEXTOUCH 200 UNITS/ML SC SCH (21:12)
--- NOTE | 2018-03-17 21:20 | NUR ---
back dressing changed had scant serous sanguinous drainage, 4x4 gauze dressing & island dressing, tolerated well
[2018-03-18] MEDS: RT-ALBUTEROL/IPRATROPIUM 3 ML (DUONEB) VIAL INH SCH ×7 (05:24→23:40)
[2018-03-18 05:45] VITALS: BP 141/65
[2018-03-18 05:58] LABS: BASOPHILS % (AUTO) 0 % (0-10); EOSINOPHILS # (AUTO) 0.2 10^3/uL (0.0-0.3); EOSINOPHILS % (AUTO) 3 % (0-10); HEMATOCRIT 25 % (40-54); HEMOGLOBIN 7.9 G/DL (13.3-17.7); LYMPHOCYTES # (AUTO) 1.1 X 10^3 (1.0-4.0); LYMPHOCYTES % (AUTO) 18 % (12-44); MEAN CORPUSCULAR HEMOGLOBIN 29 PG (25-34); MEAN CORPUSCULAR HGB CONC 32 G/DL (32-36); MEAN CORPUSCULAR VOLUME 91 FL (80-99); MEAN PLATELET VOLUME 10.6 FL (7.4-10.4); MONOCYTES # (AUTO) 0.3 X 10^3 (0.0-1.0); MONOCYTES % (AUTO) 6 % (0-12); NEUTROPHILS # (AUTO) 4.2 X 10^3 (1.8-7.8); NEUTROPHILS % (AUTO) 73 % (42-75); PLATELET COUNT 230 10^3/uL (130-400); RED CELL DISTRIBUTION WIDTH 14.9 % (10.0-14.5); WHITE BLOOD COUNT 5.8 10^3/uL (4.3-11.0)
[2018-03-18] MEDS: inSUlin ASPART (NovoLOG) 1 UNIT/0.01 ML (CHARGE PER UNIT) SC SCH ×4 (06:00→20:48)
[2018-03-18 06:22] LABS: ALBUMIN 2.9 GM/DL (3.2-4.5); BILIRUBIN,TOTAL 0.6 MG/DL (0.1-1.0); CALCIUM 8.3 MG/DL (8.5-10.1); CREATININE SERUM 1.39 MG/DL (0.60-1.30); POTASSIUM 3.7 MMOL/L (3.6-5.0); TOTAL PROTEIN 5.5 GM/DL (6.4-8.2)
[2018-03-18] MEDS: KCL 10 MEQ TAB (MICRO K) PO SCH (07:04)
[2018-03-18] MEDS: metFORMIN 500 MG (GLUCOPHAGE) TAB PO SCH ×2 (07:04→16:11)
[2018-03-18] MEDS: PANTOPRAZOLE 40 MG (PROTONIX) TAB PO SCH ×2 (07:04→20:48)
--- NOTE | 2018-03-18 07:21 | NUR ---
bedside report given to JONO STONE
[2018-03-18] MEDS: CLOPIDOGREL 75 MG (PLAVIX) TABLET PO SCH (08:21)
[2018-03-18] MEDS: amLODIPine 10 MG (NORVASC) TAB PO SCH (08:21)
[2018-03-18] MEDS: guaiFENesin (MUCINEX) 600 MG TAB PO SCH ×2 (08:21→20:48)
[2018-03-18] MEDS: GABAPENTIN 300 MG (NEURONTIN) CAP PO SCH ×2 (08:21→20:48)
--- NOTE | 2018-03-18 09:29 | PM&R Progress Note ---
Subjective HPI/CC On Admission Date Seen by Provider: Mar 18, 2018 Time Seen by Provider: 09:00 CC: Debility following lumbar spine surgery uncomplicated by Dr Elmore at [facility] HPI: This is a 67-year-old who had an uncomplicated lumbar spine surgery by Dr. Elmore on 03/10/18 at [facility] who had a complicated postoperative course requiring 1 unit of blood and postop fever with chest x- ray revealing atelectasis and significant delirium with worsening creatinine requiring inpatient rehabilitation at the full-service hospital. His delirium has improved a great deal but still slightly slowed responses at times. Fecal incontinence will be managed while in rehabilitation hospital stay. Creatinine remained stable at 2.0. I have asked cardiology consultation in case patient has a rhythm disturbance while hospitalized here at the hospital. Dr. Kahn is his vice president network. Dr Laws is his PCP. Subjective/Events-last exam Pt is doing very well Wants to go home tomorrow Partial wound vac noted, placed by wound care but then noted drainage minimal so changing simple dressing twice daily Waiting iron level that was ordered four days ago but it came back at 22 low so gave iron infusion today Pt overall improving dramatically and Creatinine is now 1.4 Restarted his Tresiba 3 days ago No fecal incontinence now HLIVF yesterday Using incentive spirometer Overall much improved and creatinine much improved DC planned for tomorrow Creat 1.5 baseline per review of Dr Flores's recent labs Review of Systems General: Fatigue Musculoskeletal: back pain Objective Exam Vital Signs Vital Signs Date Time Temp Pulse Resp B/P (MAP) Pulse Ox O2 Delivery O2 Flow Rate FiO2 03/18/18 16:12 99.6 77 18 134/57 (82) 93 Room Air Capillary Refill : General Appearance: No Apparent Distress, Chronically ill HEENT: PERRL/EOMI, TMs Normal, Normal ENT Inspection, Pharynx Normal, Moist Mucous Membranes Neck: Supple Respiratory: No Accessory Muscle Use, No Respiratory Distress, Crackles ( Coarse breath sounds in the bases), Decreased Breath Sounds Cardiovascular: Normal Peripheral Pulses Gastrointestinal: Normal Bowel Sounds, No Organomegaly, No Pulsatile Mass, Non Tender, Soft Back: Decreased Range of Motion, Other (dressing intact) Extremity: Normal Capillary Refill, No Calf Tenderness Neurologic/Psychiatric: Alert, Oriented x3, No Motor/Sensory Deficits, Other ( no confusion now) Skin: Normal Color, Warm/Dry Lymphatic: No Adenopathy Results/Procedures Lab Laboratory Tests 03/18/18 05:40 Patient resulted labs reviewed. Assessment/Plan Assessment and Plan Assess & Plan/Chief Complaint Assessment: Debility Status post uncomplicated lumbar spine surgery POD # 8 Acute fecal incontinence resolved Chronic renal insufficiency with acute elevation of creatinine nonoliguric improved level today 1.4 and baseline 1.5 per clinic labs PCP Postop anemia requiring blood transfusions 1 at [place] and the other 3 days ago COPD with chronic bronchitis and coarseness of bilateral bases on lung exam resolved today Pacemaker Sick sinus syndrome s/p Cardiology consultation GERD Hypertension BPH Fever-resolved Wound drainage resolving without wound vac Plan: Intensive therapies Restarted Plavix per Dr. ELMORE approval because it was being held due to risk of hematoma formation Consult cardiology is appreciated Monitor creatinine Home meds but hold hydrochlorothiazide, KENIA inhibitor, and decreased dose of metformin that he is insistent on taking in order to decrease chance of lactic acidosis in the setting of elevated creatinine Replace potassium Monitor fever only since workup negative and it appears to be resolved now Iron infusion (1) Debility (2) Pacemaker (3) Renal insufficiency (4) Anemia, posthemorrhagic, acute (5) Transfusion of blood during current hospitalization (6) Diabetes mellitus (7) Hypertension (8) COPD (chronic obstructive pulmonary disease) (9) Chronic bronchitis (10) Fever postop (11) H/O lumbosacral spine surgery (12) Delirium (13) Hypokalemia (14) BPH (benign prostatic hyperplasia) (15) Hyperlipidemia (16) GERD (gastroesophageal reflux disease) (17) Neuropathy (18) Fecal incontinence (19) SSS (sick sinus syndrome) (20) Hx TIA/stroke w/o resid (21) Iron deficiency Clinical Quality Measures DVT/VTE Risk/Contraindication: Risk Factor Score Per Nursin RFS Level Per Nursing on Admit: 4+=Very High MARC THURMAN DO Mar 18, 2018 09:29
--- NOTE | 2018-03-18 10:12 | NUR ---
Dressing change to lower back incision. Incision is well approximated with small amount of serosanguineous drainage noted. AllKare applied to surrounding tissue. Covered with Island dressing. Patient tolerated well. Incision is approximated 13 centimeters long. Addendum: 03/18/18 at 1159 by JONO BARON RN Incision is *approximately* 13 centimeters long.
--- NOTE | 2018-03-18 10:47 | NUR ---
Patient asking to check with Dr. Elmore before placing wound vac. Per Dr. Elmore, no need for wound vac if drainage has decreased. Last dressing change was last night (03/17/18) at 2120. Small amount of serosanguineous drainage noted on dressing this AM at 1012. Dr. Arndt notified. No need for wound vac. Continue BID dressing changes using Island dressing. Addendum: 03/18/18 at 1530 by JONO BARON RN Patient states that Dr. Elmore said he did not need a wound vac when he saw him over the weekend.
--- NOTE | 2018-03-18 11:20 | Occupational Ther Daily Note ---
OT Current Status-Daily Note Subjective Pt sitting in chair, agrees to treatment. Pt reports "soreness", but does not rate. Pt states he is leaving tomorrow. Mental Status/Objective Therapy Code Descriptions/Definitions Functional [place] Measure: 0=Not Assessed/NA 4=Minimal Assistance 1=Total Assistance 5=Supervision or Setup 2=Maximal Assistance 6=Modified [place] 3=Moderate Assistance 7=Complete [place] ADL-Treatment Pt states he is not supposed to shower secondary to back incision, but does agree to sponge bath. Pt states spouse will assist with all ADLs at home, but is agreeable to complete them this morning. Doffed shirt and back brace without assist. Used dressing stick to doff pants and socks. Upper body bathing completed with set up. Uses long handled sponge to wash lower legs and feet. Don pullover shirt and back brace without assist. Pt donned pants with set up using soft shoe dancer to start over feet. Stood with good balance during pant hike. Don socks with set up using sock aid. Increased time for bathing and dressing. Pt states he has already completed grooming tasks without assist this morning while standing at sink. Gait to restroom with FWW. Pt demonstrated ability to perform toilet transfer with modified independence using grab bar for balance and safety. Pt states he has been completing toileting hygiene and clothing management without assist. Education provided regarding home safety. Pt states understanding of education and has no questions or concerns at this time. States spouse will be available to assist as needed. Therapy Code Descriptions/Definitions Functional [place] Measure: 0=Not Assessed/NA 4=Minimal Assistance 1=Total Assistance 5=Supervision or Setup 2=Maximal Assistance 6=Modified [place] 3=Moderate Assistance 7=Complete [place] Therapy Quality Codes: 6 Independent with activity with or without an assistive device 5 Patient requires set up or clean up by helper. Patient completes activity by themselves 4 Supervision or touching assist (CGA). [place] provide cues , steadying assist 3 The helper provides less than half the effort to complete the activity 2 The helper provides more than half the effort to complete the activity 1 Dependent. The helper does all the effort to complete an activity 7 Patient refused to complete or attempt activity 9 The patient did not perform the activity before the current illness or injury 88 Not attempted due to Medical conditions or safety concerns Eating (FIM): 6 (Pt reports feeding himself and managing containers without assist. Wears dentures) Eating (QC): 6 Grooming (FIM): 6 (by pt report) Oral Hygiene (QC): 6 Bathing (FIM): 5 Shower/Bathe Self (QC): 5 Upper Body (FIM): 6 Upper Body Dressing (QC): 6 Lower Body Dressing (FIM): 5 Lower Body Dressing (QC): 5 On/Off Footwear (QC): 5 Toileting (FIM): 6 (by pt report) Toileting Hygiene (QC): 6 Toilet/Commode Transfer (FIM): 6 Toilet Transfer (QC): 6 Other Treatment Gait to therapy gym with FWW. Pt completed arm bike [id number] to increase overall strength and activity tolerance needed for ADLs and transfers. Pt performed task with minimal resistance and steady pace. No rest breaks needed. Pt returned to room, sitting in chair with needs met after session. Education OT Patient Education: Modified ADL techniques, Safety issues Teaching Recipient: Patient Teaching Methods: Discussion Response to Teaching: Verbalize Understanding OT Short Term Goals Short Term Goals Time Frame: Mar 22, 2018 Bathing(FIM): 4 Lower Body Dressing(FIM): 5 Transfers (B,C,W/C) (FIM): 5 1=Demonstrate adherence to instructed precautions during ADL tasks. 2=Patient will verbalize/demonstrate understanding of assistive devices/ modifications for ADL. 3=Patient will improve strength/tolerance for activity to enable patient to perform ADL's. OT Local Delivery Driver Goals [facility] Goals Time Frame: Mar 29, 2018 Eating (FIM): 6 (met 03/18/18) Eating (QC): 6 (6-MET) Groomin (met 03/18/18) Oral Hygiene (QC): 6 (6-MET) Bathing(FIM): 5 (met 03/18/18) Shower/Bathe Self (QC): 5 (5-MET) Upper Body Dressing(FIM): 6 (met 03/18/18) Upper Body Dressing (QC): 6 (6-MET) Lower Body Dressing(FIM): 6 (not met) Lower Body Dressing (QC): 6 (5-Not met) On/Off Footwear (QC): 6 (5-not met) Toileting(FIM): 6 (met 03/18/18) Toileting Hygiene (QC): 6 (6-MET) Toilet/Commode Transfer(FIM): 6 (met /06/29) Toilet/Commode Transfer (QC): 6 (6-MET) Shower Transfer(FIM): 5 Additional Goals: 1-Demonstrate ADL Tasks, 2-Verbalize Understanding, 3- ImproveStrength/Isaac 1=Demonstrate adherence to instructed precautions during ADL tasks. 2=Patient will verbalize/demonstrate understanding of assistive devices/ modifications for ADL. 3=Patient will improve strength/tolerance for activity to enable patient to perform ADL's. OT Education/Plan Problem List/Assessment Pt to benefit from skilled OT intervention for ADL training, transfers, strengthening, adaptive equipment education, and home safety education to increase functional independence and allow safe discharge home. Discharge Recommendations Plan/Recommendations: Continue POC Treatment Plan/Plan of Care Patient would benefit from OT for education, treatment and training to promote independence in ADL's, mobility, safety and/or upper extremity function for ADL' s. Plan of Care: ADL Retraining, Functional Mobility, Group Exercise/Act as Ind, UE Funct Exercise/Act Treatment Duration: Mar 29, 2018 Frequency: At least 5 of 7 days/Wk (IRF) Estimated Hrs Per Day: 1.5 hours per day Agreement: Yes Rehab Potential: Good Time/GCodes Start Time: 08:15 Stop Time: 09:45 Total Time Billed (hr/min): 90 Billed Treatment Time 1 visit, ADLx5(70minutes), EX(20minutes) AIAD CASTILLO OT Mar 18, 2018 11:19
--- NOTE | 2018-03-18 11:33 | Physical Therapy Daily Note ---
PT Daily Note-Current Subjective Patient in recliner pre tx, agrees to PT, patient states that he has little to no pain. Patient is being discharged tomorrow. Patient has a lot of swelling in both legs that limits his ROM. Appearance Patient in chair post tx with nurse call, phone, tray, all needs met. Patient can don/doff his brace himself. Mental Status Patient Orientation: Person, Place, Situation back brace Transfers Therapy Code Descriptions/Definitions Functional [place] Measure: 0=Not Assessed/NA 4=Minimal Assistance 1=Total Assistance 5=Supervision or Setup 2=Maximal Assistance 6=Modified [place] 3=Moderate Assistance 7=Complete [place] Therapy Quality Codes: 6 Independent with activity with or without an assistive device 5 Patient requires set up or clean up by helper. Patient completes activity by themselves 4 Supervision or touching assist (CGA). [place] provide cues , steadying assist 3 The helper provides less than half the effort to complete the activity 2 The helper provides more than half the effort to complete the activity 1 Dependent. The helper does all the effort to complete an activity 7 Patient refused to complete or attempt activity 9 The patient did not perform the activity before the current illness or injury 88 Not attempted due to Medical conditions or safety concerns Transfers (B, C, W/C) (FIM): 4 Scootin Rollin Roll Left to Right (QC): 6 Supine to/from Sit: 4 Sit to/from Stand: 6 Sit to Lying (QC): 3 Sit to Stand (QC): 6 Chair/[id number] Xfer(QC): 6 Bed to/from Chair: 6 Car Transfer (QC): 3 Patient performs bed mobility with mod I, supine <-> sit with min assist, sit <- > stand with mod I, transfers with mod I, car transfer min assist. Patient needs help with one leg getting into bed and into car. Weight Bearing Weight Bearing/Tolerated Weight Bearing/Tolerated Gait Training Gait (FIM): 6 Distance: 150'x2 Walk 10 feet (QC): 6 Walk 50 ft with 2 Turns(QC): 6 Walk 150 ft (QC): 6 Walking 10ft/uneven surface-QC: 6 Gait Level of Assist: 6 Gait Assistive Device: FWW Patient can ambulate 150' with a rolling walker with mod I (including 50' with at least 2 turns of 90 degrees and 10' over an uneven surface). Patient ambulates very slowly and slumps forward (flexed at the hips) and leans over the walker. He has a hard time advancing his right leg at the beginning of ambulation. Wheelchair Training Does the Pt Use a Wheelchair?: No Stair Training Stair Training: Handrails/: 2 handrails Stairs (FIM): 5 #of Steps: 4 1 Step (curb) (QC): 4 4 Steps (QC): 4 Stairs: Pattern: Step to Level of Assist: 5 Patient can go up and down 4 steps using 2 handrails with SBA. Needs cues for foot placement due to weaker right leg. Exercises Standing: Heel/toe raises, Marching, Mini squats Standing Reps: 20 NuStep Minutes: 15 NuStep Workload: 4 Treatments bed mobility and transfers, ambulation, functional strengthening, stair training Assessment Current Status: Fair Progress Improvement in all areas of mobility but patient does have impaired endurance and needs frequent rest breaks. PT Short Term Goals Short Term Goals Time Frame: Mar 29, 2018 Transfers (B,C,W/C) (FIM): 5 Gait (FIM): 5 Distance (FIM): 3=150 ft Gait Level of Assist: 5 Gait Assistive Device: FWW PT Half-Way Goals Half-Way Goals PT Insurance Operations Rep Goals Time Frame: Apr 12, 2018 Transfers (B,C,W/C) (FIM): 7 Sit to Lying (QC): 7 Lying-Sitting on Side/Bed(QC): 7 Sit to Stand (QC): 7 Rollin Roll Left to Right (QC): 7 Chair/[id number]-[id number] Xfer(QC): 7 Car Transfer (QC): 7 Does the Patient Walk: Yes Gait (FIM): 6 Gait distance (FIM): 3=150 ft Distance: 500' Walk 10 feet (QC): 7 Walk 10ft-Uneven Surface(QC): 7 Walk 50ft with 2 Turns (QC): 7 Walk 150 ft (QC): 7 Gait Level of Assist: 6 Gait Assistive Device: FWW PT Plan Problem List Problem List: Activity Tolerance, Functional Strength, Safety, Balance, Gait, Transfer, Bed Mobility, ROM Treatment/Plan Treatment Plan: Continue Plan of Care Treatment Plan: Bed Mobility, Concurrent Therapy, Education, Functional Activity Isaac, Functional Strength, Group Therapy, Gait, Therapeutic Exercise, Transfers Treatment Duration: Apr 12, 2018 Frequency: At least 5 of 7 days/Wk (IRF) Estimated Hrs Per Day: 1.5 hours per day Patient and/or Family Agrees t: Yes Safety Risks/Education Patient Education: Gait Training, Transfer Techniques, Steps, Correct Positioning, Reviewed Don/Doff Brace, Safety Issues Teaching Recipient: Patient Teaching Methods: Demonstration, Discussion Response to Teaching: Reinforcement Needed Time/GCodes Time In: 1035 Time Out: 1135 Total Billed Treatment Time: 60 Total Billed Treatment 1 visit GT 15' EX 25' FA 20' LARA CEDILLO PT Mar 18, 2018 11:33
[2018-03-18] MEDS: ZINC OXIDE 16% OINT (BUTT PASTE) 113 GM TUBE TOP SCH ×2 (11:40→21:05)
--- NOTE | 2018-03-18 13:25 | Physical Therapy Daily Note ---
PT Daily Note-Current Subjective Patient in chair pre tx, agrees to PT, no complaints of pain. Appearance Patient in chair post tx with nurse call, phone, tray, all needs met. in room. Mental Status Patient Orientation: Person, Place, Situation back brace Transfers Therapy Code Descriptions/Definitions Functional [place] Measure: 0=Not Assessed/NA 4=Minimal Assistance 1=Total Assistance 5=Supervision or Setup 2=Maximal Assistance 6=Modified [place] 3=Moderate Assistance 7=Complete [place] Therapy Quality Codes: 6 Independent with activity with or without an assistive device 5 Patient requires set up or clean up by helper. Patient completes activity by themselves 4 Supervision or touching assist (CGA). Belle provide cues , steadying assist 3 The helper provides less than half the effort to complete the activity 2 The helper provides more than half the effort to complete the activity 1 Dependent. The helper does all the effort to complete an activity 7 Patient refused to complete or attempt activity 9 The patient did not perform the activity before the current illness or injury 88 Not attempted due to Medical conditions or safety concerns Transfers (B, C, W/C) (FIM): 6 Sit to/from Stand: 6 Bed to/from Chair: 6 Weight Bearing Weight Bearing/Tolerated Weight Bearing/Tolerated Gait Training Gait (FIM): 6 Distance: 400'x2 Gait Level of Assist: 6 Gait Assistive Device: FWW Patient ambulates very slowly and leans over the walker but ambulates with mod I , no LOB or unsteadiness. Patient rested between bouts of ambulation Treatments transfers, ambulation Assessment Current Status: Fair Progress improved endurance. Patient continues to have bilateral lower extremity edema. PT Short Term Goals Short Term Goals Time Frame: Mar 29, 2018 Transfers (B,C,W/C) (FIM): 5 Gait (FIM): 5 Distance (FIM): 3=150 ft Gait Level of Assist: 5 Gait Assistive Device: FWW PT Public Address System Mechanic Goals Public Address System Mechanic Goals PT Mcc Goals Time Frame: Apr 12, 2018 Transfers (B,C,W/C) (FIM): 7 Sit to Lying (QC): 7 Lying-Sitting on Side/Bed(QC): 7 Sit to Stand (QC): 7 Rollin Roll Left to Right (QC): 7 Chair/Ime-ex-Pyybo Xfer(QC): 7 Car Transfer (QC): 7 Does the Patient Walk: Yes Gait (FIM): 6 Gait distance (FIM): 3=150 ft Distance: 500' Walk 10 feet (QC): 7 Walk 10ft-Uneven Surface(QC): 7 Walk 50ft with 2 Turns (QC): 7 Walk 150 ft (QC): 7 Gait Level of Assist: 6 Gait Assistive Device: FWW PT Plan Problem List Problem List: Activity Tolerance, Functional Strength, Safety, Balance, Gait, Transfer, Bed Mobility, ROM Treatment/Plan Treatment Plan: Continue Plan of Care Treatment Plan: Bed Mobility, Concurrent Therapy, Education, Functional Activity Isaac, Functional Strength, Group Therapy, Gait, Therapeutic Exercise, Transfers Treatment Duration: Apr 12, 2018 Frequency: At least 5 of 7 days/Wk (IRF) Estimated Hrs Per Day: 1.5 hours per day Patient and/or Family Agrees t: Yes Safety Risks/Education Patient Education: Gait Training, Transfer Techniques, Correct Positioning, Safety Issues Teaching Recipient: Patient Teaching Methods: Demonstration, Discussion Response to Teaching: Reinforcement Needed Time/GCodes Time In: 1300 Time Out: 1330 Total Billed Treatment Time: 30 Total Billed Treatment 1 visit GT 30' LARA CEDILLO PT Mar 18, 2018 13:25
[2018-03-18] MEDS ORDERED: IRON SUCROSE 200 MG/10 ML (VENOFER) VIAL IV NR (13:30)
--- NOTE | 2018-03-18 14:47 | NUR ---
C/O back spasms. Requesting a muscle relaxer. Dr. Cai notified. Orders to start Baclofen- 10 MG PO TID PRN spasms.
[2018-03-18] MEDS ORDERED: INSU100I14 SC (15:35)
[2018-03-18] MEDS ORDERED: DICL75TA2 PO (15:35)
[2018-03-18] MEDS ORDERED: INSU100I14 SQ (15:35)
[2018-03-18] MEDS ORDERED: MULT-633 PO (15:52)
[2018-03-18] MEDS ORDERED: VITA1CAP PO (15:52)
[2018-03-18] MEDS ORDERED: FLAX10004 PO (15:52)
[2018-03-18] MEDS ORDERED: ASPI-983 PO (15:52)
--- NOTE | 2018-03-18 15:55 | NUR ---
WENT OVER THE EXT MED HX WITH THE PATIENT AND HE VERIFIED HOW HE WAS TAKING HIS MEDICATIONS PRIOR TO HIS SURGERY AT [facility]. HIS GABAPENTIN IS FILLED #90 FOR 30 DAYS HOWEVER HE STATES HE ONLY TAKES IT BID. HIS NOVOLOG IS A SLIDING SCALE OF 4-8 UNITS WITH MEALS TID. HE TAKES THE FOLLOWING OTC: ASPIRIN 81MG DAILY VITAMIN B COMPLEX DAILY [employer] DAILY FLAXSEED OIL DAILY
[2018-03-18] MEDS: BACLOFEN 10 MG (LIORESAL) TAB PO PRN (16:10)
[2018-03-18 16:12] VITALS: BP 134/57
--- NOTE | 2018-03-18 16:30 | NUR ---
Discharge planning Discussed discharge plan with patient. He is agreeable to discharge home on 03/19/18. He denies the need for any equipment and denies need for C or outpatient therapy services.
--- NOTE | 2018-03-18 16:52 | NUR ---
Iron is 22. Dr. Cai aware. 1X dose of IV Venofer given per orders. See eMAR for details.
[2018-03-18] MEDS: TAMSULOSIN 0.4 MG (FLOMAX) CAP PO SCH (17:26)
--- NOTE | 2018-03-18 19:13 | NUR ---
bedside report received from JONO STONE, assume care of pt
--- NOTE | 2018-03-18 19:21 | NUR ---
bedside report received from JONO STONE, assume care of pt
[2018-03-18] MEDS: TRESIBA FLEXTOUCH 200 UNITS/ML SC SCH (20:51)
--- NOTE | 2018-03-18 21:00 | NUR ---
assessments & interventions completed, see assessments & interventions, fsbs 203 pt stated would take novolog 3 units instead of 6 units & tresiba 30 units, changed dressing to back had small amt of serous sanguinous drainage, butt paste to butt cheeks
[2018-03-19] MEDS: RT-ALBUTEROL/IPRATROPIUM 3 ML (DUONEB) VIAL INH SCH ×2 (02:18→07:32)
[2018-03-19 05:05] VITALS: BP 149/83
[2018-03-19] MEDS: PANTOPRAZOLE 40 MG (PROTONIX) TAB PO SCH (07:06)
[2018-03-19] MEDS: metFORMIN 500 MG (GLUCOPHAGE) TAB PO SCH (07:06)
[2018-03-19] MEDS: KCL 10 MEQ TAB (MICRO K) PO SCH (07:07)
[2018-03-19] MEDS: inSUlin ASPART (NovoLOG) 1 UNIT/0.01 ML (CHARGE PER UNIT) SC SCH (07:07)
--- NOTE | 2018-03-19 07:07 | NUR ---
even though fsbs 216, pt stated would take 5 units of novolog insulin instead of 6 units & only with tray arrival
--- NOTE | 2018-03-19 07:30 | NUR ---
bedside report given to JOY STONE
--- NOTE | 2018-03-19 08:09 | Therapy Team Discharge Summary ---
Therapy Discharge Summary Discharge Recommendations Date of Discharge Therapy D/C Recommendations: Home w/ Family Support, Occupational Therapy Home Care Physical Therapy Patient came to rehab s/p L3-5 lumbar fusion. Upon evaluation patient performed bed mobility with mod assist, transfers with SBA, car transfers SBA, ambulated 10' with a rolling walker with SBA, and went up and down 4 steps using 2 handrails with SBA. Patient has been performing bed mobility and transfer training, balance and endurance training, functional strengthening, stair training, gait training, and education. 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 Now, patient performs bed mobility with mod I, supine <-> sit with min assist, sit <-> stand with mod I, transfers with mod I, car transfer min assist, ambulate 150' with a rolling walker with mod I ( including 50' with at least 2 turns of 90 degrees and 10' over an uneven surface ), and can go up and down 4 steps using 2 handrails with SBA. Patient is discharging from this facility today and will be discharged from PT at this time. Occupational Therapy Decreased Activ Tolerance, Decreased Safety Aware, Decreased UE Strength, Impaired Funct Balance, Impaired Self-Care Skills PT Custodial Goals Custodial Goals PT Financial Sales Manager Goals Time Frame: Apr 12, 2018 Transfers (B,C,W/C) (FIM): 7 Roll Left to Right (QC): 7 Sit to Lying (QC): 7 Lying-Sitting on Side/Bed(QC): 7 Sit to Stand (QC): 7 Chair/Yje-np-Fvthx Xfer(QC): 7 Car Transfer (QC): 7 Does the Patient Walk: Yes Gait (FIM): 6 Gait distance (FIM): 3=150 ft Distance: 500' Walk 10 feet (QC): 7 Walk 10ft-Uneven Surface(QC): 7 Walk 50ft with 2 Turns (QC): 7 Walk 150 ft (QC): 7 Gait Level of Assist: 6 Gait Assistive Device: FWW OT Custodial Goals Financial Sales Manager Goals Time Frame: Mar 29, 2018 Eating (FIM): 6 (met 03/18/18) Eating (QC): 6 (6-MET) Oral Hygiene (QC): 6 (6-MET) Grooming(FIM): 6 (met 03/18/18) Bathing(FIM): 5 (met 03/18/18) Shower/Bathe Self (QC): 5 (5-MET) Upper Body Dressing(FIM): 6 (met 03/18/18) Upper Body Dressing (QC): 6 (6-MET) Lower Body Dressing(FIM): 6 (not met) Lower Body Dressing (QC): 6 (5-Not met) On/Off Footwear (QC): 6 (5-not met) Toileting(FIM): 6 (met 03/18/18) Toileting Hygiene (QC): 6 (6-MET) Toilet/Commode Transfer(FIM): 6 (met 03/18/18) Toilet/Commode Transfer (QC): 6 (6-MET) Shower Transfer(FIM): 5 Additional Goals: 1-Demonstrate ADL Tasks, 2-Verbalize Understanding, 3- ImproveStrength/Isaac 1=Demonstrate adherence to instructed precautions during ADL tasks. 2=Patient will verbalize/demonstrate understanding of assistive devices/ modifications for ADL. 3=Patient will improve strength/tolerance for activity to enable patient to perform ADL's. LARA CEDILLO PT Mar 19, 2018 08:09
[2018-03-19] MEDS: guaiFENesin (MUCINEX) 600 MG TAB PO SCH (08:27)
[2018-03-19] MEDS: CLOPIDOGREL 75 MG (PLAVIX) TABLET PO SCH (08:27)
[2018-03-19] MEDS: amLODIPine 10 MG (NORVASC) TAB PO SCH (08:27)
[2018-03-19] MEDS: GABAPENTIN 300 MG (NEURONTIN) CAP PO SCH (08:27)
[2018-03-19] MEDS: ZINC OXIDE 16% OINT (BUTT PASTE) 113 GM TUBE TOP SCH (08:28)
[2018-03-19] MEDS ORDERED: BACL10TA PO (09:13)
--- NOTE | 2018-03-19 09:15 | Discharge Summary ---
Diagnosis/Chief Complaint Date of Admission Mar 14, 2018 at 16:50 Date of Discharge Discharge Date: Mar 19, 2018 Discharge Diagnosis Assessment: Debility Status post uncomplicated lumbar spine surgery POD # 9 Acute fecal incontinence resolved Chronic renal insufficiency with acute elevation of creatinine nonoliguric improved level today 1.4 and baseline 1.5 per clinic labs PCP Postop anemia requiring blood transfusions 1 at [place] and the other 3 days ago COPD with chronic bronchitis and coarseness of bilateral bases on lung exam resolved today Pacemaker Sick sinus syndrome s/p Cardiology consultation GERD Hypertension BPH Fever-resolved Wound drainage resolving without wound vac Plan: Intensive therapies Restarted Plavix per Dr. ELMORE approval because it was being held due to risk of hematoma formation Consult cardiology is appreciated Monitor creatinine Home meds but hold hydrochlorothiazide, KENIA inhibitor, and decreased dose of metformin that he is insistent on taking in order to decrease chance of lactic acidosis in the setting of elevated creatinine Replace potassium Monitor fever only since workup negative and it appears to be resolved now Iron infusion Discharge Summary Discharge Physical Examination Allergies: Coded Allergies: aspirin (Verified Allergy, Unknown, 03/14/18) dipyridamole (Verified Allergy, Unknown, 03/14/18) levofloxacin (Verified Allergy, Unknown, 03/14/18) Vitals & I&Os Vital Signs Date Time Temp Pulse Resp B/P (MAP) Pulse Ox O2 Delivery O2 Flow Rate FiO2 03/19/18 12:00 68 18 145/80 97 Room Air 03/19/18 05:05 98.8 Hospital Course Was the Problem List Reviewed?: Yes Hospital course: Patient is a very complex but standard hospital course when he was admitted from [facility] after an uncomplicated back surgery but postoperatively he experienced delirium with acute renal failure and severe anemia requiring a transfusion while hospitalized in [place]. He was admitted to [facility] inpatient rehab cardiology was consulted and patient was monitored closely maintain on IV fluids and given 1 unit of blood and ultimately one iron infusion due to iron level of 22. Old clinic records revealed baseline creatinine of 1.5 and at time of discharge his creatinine is 1.4. Nebulizer treatments and oxygen supplementation was maintained for coarse breath sounds but chest x-ray was normal. Incision was assessed by Dr. Elmore did not end up requiring a wound VAC as originally thought and he did not require any antibiotics for any type of bacterial infection during his hospital course. Patient was able to participate in all physical therapy and occupational therapy requirements and was deemed stable for discharge in improved condition. Labs (last 24 hrs) Laboratory Tests 03/14/18 17:45: Urine Color YELLOW, Urine Clarity CLEAR, Urine pH 5, Urine Specific [place] 1.010L, Urine Protein 2+H, Urine Glucose (UA) NEGATIVE, Urine Ketones NEGATIVE, Urine Nitrite NEGATIVE, Urine Bilirubin NEGATIVE, Urine Urobilinogen NORMAL, Urine Leukocyte Esterase NEGATIVE, Urine RBC (Auto) 4+H, Urine RBC 2-5H, Urine WBC NONE, Urine Squamous Epithelial Cells RARE, Urine Crystals PRESENTH, Urine Amorphous Sediment FEW RICHARD URATESH, Urine Bacteria NONE, Urine Casts NONE, Urine Mucus NEGATIVE, Urine Culture Indicated NO 03/14/18 17:52: Glucometer 89 03/14/18 19:25: White Blood Count 5.7, Red Blood Count 2.86L, Hemoglobin 8.3L, Hematocrit 25L, Mean Corpuscular Volume 88, Mean Corpuscular Hemoglobin 29, Mean Corpuscular Hemoglobin Concent 33, Red Cell Distribution Width 14.3, Platelet Count 145, Mean Platelet Volume 11.0H, Neutrophils (%) (Auto) 79H, Lymphocytes (%) (Auto) 14, Monocytes (%) (Auto) 5, Eosinophils (%) (Auto) 1, Basophils (%) (Auto) 0, Neutrophils # (Auto) 4.5, Lymphocytes # (Auto) 0.8L, Monocytes # (Auto) 0.3, Eosinophils # (Auto) 0.0, Basophils # (Auto) 0.0, Sodium Level 136, Potassium Level 3.6, Chloride Level 105, Carbon Dioxide Level 18L, Anion Gap 13, Blood Urea Nitrogen 60H, Creatinine 2.01H, Estimat Glomerular Filtration Rate 33, BUN/ Creatinine Ratio 30, Glucose Level 47*L, Lactic Acid Level 1.14, Calcium Level 8.6, Corrected Calcium 9.2, Iron Level 22L, Total Bilirubin 0.7, Aspartate Amino Transf (AST/SGOT) 196H, Alanine Aminotransferase (ALT/SGPT) 173H, Alkaline Phosphatase 139H, Troponin I < 0.028, B-Type Natriuretic Peptide 19.2, Total Protein 6.1L, Albumin 3.3 03/14/18 20:29: Glucometer 74 03/14/18 23:40: Glucometer 283H 03/15/18 05:22: White Blood Count 4.2L, Red Blood Count 2.52L, Hemoglobin 7.3L, Hematocrit 23L, Mean Corpuscular Volume 89, Mean Corpuscular Hemoglobin 29, Mean Corpuscular Hemoglobin Concent 32, Red Cell Distribution Width 13.9, Platelet Count 114L, Mean Platelet Volume 11.0H, Neutrophils (%) (Auto) 67, Lymphocytes (%) (Auto) 25 , Monocytes (%) (Auto) 7, Eosinophils (%) (Auto) 1, Basophils (%) (Auto) 0, Neutrophils # (Auto) 2.8, Lymphocytes # (Auto) 1.1, Monocytes # (Auto) 0.3, Eosinophils # (Auto) 0.1, Basophils # (Auto) 0.0, Sodium Level 134L, Potassium Level 3.4L, Chloride Level 105, Carbon Dioxide Level 19L, Anion Gap 10, Blood Urea Nitrogen 55H, Creatinine 2.01H, Estimat Glomerular Filtration Rate 33, BUN/ Creatinine Ratio 27, Glucose Level 292H, Calcium Level 8.1L, Corrected Calcium 9.1, Total Bilirubin 0.6, Aspartate Amino Transf (AST/SGOT) 116H, Alanine Aminotransferase (ALT/SGPT) 145H, Alkaline Phosphatase 133, Ammonia 30, B-Type Natriuretic Peptide 35.9, Total Protein 5.3L, Albumin 2.8L, Thyroid Stimulating Hormone (TSH) 0.65 03/15/18 12:13: Glucometer 93 03/15/18 17:21: Glucometer 188H 03/15/18 20:26: Glucometer 250H 03/16/18 05:46: Glucometer 132H 03/16/18 05:47: White Blood Count 5.3, Red Blood Count 2.70L, Hemoglobin 7.8L, Hematocrit 24L, Mean Corpuscular Volume 89, Mean Corpuscular Hemoglobin 29, Mean Corpuscular Hemoglobin Concent 33, Red Cell Distribution Width 14.8H, Platelet Count 150, Mean Platelet Volume 11.1H, Neutrophils (%) (Auto) 75, Lymphocytes (%) (Auto) 16 , Monocytes (%) (Auto) 7, Eosinophils (%) (Auto) 2, Basophils (%) (Auto) 0, Neutrophils # (Auto) 3.9, Lymphocytes # (Auto) 0.9L, Monocytes # (Auto) 0.4, Eosinophils # (Auto) 0.1, Basophils # (Auto) 0.0, Erythrocyte Sedimentation Rate 75H, Sodium Level 140, Potassium Level 3.9, Chloride Level 111H, Carbon Dioxide Level 18L, Anion Gap 11, Blood Urea Nitrogen 44H, Creatinine 1.64H, Estimat Glomerular Filtration Rate 42, BUN/Creatinine Ratio 27, Glucose Level 121H, Calcium Level 8.1L, Corrected Calcium 9.0, Total Bilirubin 1.1H, Aspartate Amino Transf (AST/SGOT) 52H, Alanine Aminotransferase (ALT/SGPT) 108H , Alkaline Phosphatase 151H, C-Reactive Protein High Sensitivity 9.92H, Total Protein 5.3L, Albumin 2.9L 03/16/18 13:07: Glucometer 299H 03/16/18 16:59: Glucometer 261H 03/16/18 20:46: Glucometer 224H 03/17/18 05:47: Glucometer 154H 03/17/18 09:55: White Blood Count 7.5, Red Blood Count 3.15L, Hemoglobin 9.1L, Hematocrit 28L, Mean Corpuscular Volume 90, Mean Corpuscular Hemoglobin 29, Mean Corpuscular Hemoglobin Concent 32, Red Cell Distribution Width 14.8H, Platelet Count 201, Mean Platelet Volume 10.5H, Neutrophils (%) (Auto) 85H, Lymphocytes (%) (Auto) 9L, Monocytes (%) (Auto) 6, Eosinophils (%) (Auto) 1, Basophils (%) (Auto) 0, Neutrophils # (Auto) 6.3, Lymphocytes # (Auto) 0.7L, Monocytes # (Auto) 0.4, Eosinophils # (Auto) 0.1, Basophils # (Auto) 0.0, Sodium Level 140, Potassium Level 3.7, Chloride Level 110H, Carbon Dioxide Level 18L, Anion Gap 12, Blood Urea Nitrogen 34H, Creatinine 1.58H, Estimat Glomerular Filtration Rate 44, BUN/ Creatinine Ratio 22, Glucose Level 290H, Calcium Level 8.7, Corrected Calcium 9.3, Total Bilirubin 0.9, Aspartate Amino Transf (AST/SGOT) 31, Alanine Aminotransferase (ALT/SGPT) 94H, Alkaline Phosphatase 164H, Total Protein 6.2L, Albumin 3.3 03/17/18 11:56: Glucometer 282H 03/17/18 17:09: Glucometer 179H 03/17/18 21:03: Glucometer 224H 03/18/18 05:40: White Blood Count 5.8, Red Blood Count 2.72L, Hemoglobin 7.9L, Hematocrit 25L, Mean Corpuscular Volume 91, Mean Corpuscular Hemoglobin 29, Mean Corpuscular Hemoglobin Concent 32, Red Cell Distribution Width 14.9H, Platelet Count 230, Mean Platelet Volume 10.6H, Neutrophils (%) (Auto) 73, Lymphocytes (%) (Auto) 18 , Monocytes (%) (Auto) 6, Eosinophils (%) (Auto) 3, Basophils (%) (Auto) 0, Neutrophils # (Auto) 4.2, Lymphocytes # (Auto) 1.1, Monocytes # (Auto) 0.3, Eosinophils # (Auto) 0.2, Basophils # (Auto) 0.0, Sodium Level 144, Potassium Level 3.7, Chloride Level 115H, Carbon Dioxide Level 18L, Anion Gap 11, Blood Urea Nitrogen 30H, Creatinine 1.39H, Estimat Glomerular Filtration Rate 51, BUN/ Creatinine Ratio 22, Glucose Level 68L, Calcium Level 8.3L, Corrected Calcium 9.2, Total Bilirubin 0.6, Aspartate Amino Transf (AST/SGOT) 28, Alanine Aminotransferase (ALT/SGPT) 73H, Alkaline Phosphatase 143H, Total Protein 5.5L, Albumin 2.9L 03/18/18 05:50: Glucometer 70 03/18/18 11:28: Glucometer 275H 03/18/18 16:08: Glucometer 129H 03/18/18 20:42: Glucometer 203H 03/19/18 05:00: Glucometer 216H 03/19/18 11:30: Glucometer 203H Pending Labs Laboratory Tests 03/14/18 17:45: Urine Color YELLOW, Urine Clarity CLEAR, Urine pH 5, Urine Specific [place] 1.010, Urine Protein 2+, Urine Glucose (UA) NEGATIVE, Urine Ketones NEGATIVE, Urine Nitrite NEGATIVE, Urine Bilirubin NEGATIVE, Urine Urobilinogen NORMAL, Urine Leukocyte Esterase NEGATIVE, Urine RBC (Auto) 4+, Urine RBC 2-5, Urine WBC NONE, Urine Squamous Epithelial Cells RARE, Urine Crystals PRESENT, Urine Amorphous Sediment FEW RICHARD URATES, Urine Bacteria NONE, Urine Casts NONE, Urine Mucus NEGATIVE, Urine Culture Indicated NO 03/14/18 17:52: Glucometer 89 03/14/18 19:25: White Blood Count 5.7, Red Blood Count 2.86, Hemoglobin 8.3, Hematocrit 25, Mean Corpuscular Volume 88, Mean Corpuscular Hemoglobin 29, Mean Corpuscular Hemoglobin Concent 33, Red Cell Distribution Width 14.3, Platelet Count 145, Mean Platelet Volume 11.0, Neutrophils (%) (Auto) 79, Lymphocytes (%) (Auto) 14 , Monocytes (%) (Auto) 5, Eosinophils (%) (Auto) 1, Basophils (%) (Auto) 0, Neutrophils # (Auto) 4.5, Lymphocytes # (Auto) 0.8, Monocytes # (Auto) 0.3, Eosinophils # (Auto) 0.0, Basophils # (Auto) 0.0, Sodium Level 136, Potassium Level 3.6, Chloride Level 105, Carbon Dioxide Level 18, Anion Gap 13, Blood Urea Nitrogen 60, Creatinine 2.01, Estimat Glomerular Filtration Rate 33, BUN/ Creatinine Ratio 30, Glucose Level 47, Lactic Acid Level 1.14, Calcium Level 8.6 , Corrected Calcium 9.2, Iron Level 22, Total Bilirubin 0.7, Aspartate Amino Transf (AST/SGOT) 196, Alanine Aminotransferase (ALT/SGPT) 173, Alkaline Phosphatase 139, Troponin I < 0.028, B-Type Natriuretic Peptide 19.2, Total Protein 6.1, Albumin 3.3 03/14/18 20:29: Glucometer 74 03/14/18 23:40: Glucometer 283 03/15/18 05:22: White Blood Count 4.2, Red Blood Count 2.52, Hemoglobin 7.3, Hematocrit 23, Mean Corpuscular Volume 89, Mean Corpuscular Hemoglobin 29, Mean Corpuscular Hemoglobin Concent 32, Red Cell Distribution Width 13.9, Platelet Count 114, Mean Platelet Volume 11.0, Neutrophils (%) (Auto) 67, Lymphocytes (%) (Auto) 25 , Monocytes (%) (Auto) 7, Eosinophils (%) (Auto) 1, Basophils (%) (Auto) 0, Neutrophils # (Auto) 2.8, Lymphocytes # (Auto) 1.1, Monocytes # (Auto) 0.3, Eosinophils # (Auto) 0.1, Basophils # (Auto) 0.0, Sodium Level 134, Potassium Level 3.4, Chloride Level 105, Carbon Dioxide Level 19, Anion Gap 10, Blood Urea Nitrogen 55, Creatinine 2.01, Estimat Glomerular Filtration Rate 33, BUN/ Creatinine Ratio 27, Glucose Level 292, Calcium Level 8.1, Corrected Calcium 9.1 , Total Bilirubin 0.6, Aspartate Amino Transf (AST/SGOT) 116, Alanine Aminotransferase (ALT/SGPT) 145, Alkaline Phosphatase 133, Ammonia 30, B-Type Natriuretic Peptide 35.9, Total Protein 5.3, Albumin 2.8, Thyroid Stimulating Hormone (TSH) 0.65 03/15/18 12:13: Glucometer 93 03/15/18 17:21: Glucometer 188 03/15/18 20:26: Glucometer 250 03/16/18 05:46: Glucometer 132 03/16/18 05:47: White Blood Count 5.3, Red Blood Count 2.70, Hemoglobin 7.8, Hematocrit 24, Mean Corpuscular Volume 89, Mean Corpuscular Hemoglobin 29, Mean Corpuscular Hemoglobin Concent 33, Red Cell Distribution Width 14.8, Platelet Count 150, Mean Platelet Volume 11.1, Neutrophils (%) (Auto) 75, Lymphocytes (%) (Auto) 16 , Monocytes (%) (Auto) 7, Eosinophils (%) (Auto) 2, Basophils (%) (Auto) 0, Neutrophils # (Auto) 3.9, Lymphocytes # (Auto) 0.9, Monocytes # (Auto) 0.4, Eosinophils # (Auto) 0.1, Basophils # (Auto) 0.0, Erythrocyte Sedimentation Rate 75, Sodium Level 140, Potassium Level 3.9, Chloride Level 111, Carbon Dioxide Level 18, Anion Gap 11, Blood Urea Nitrogen 44, Creatinine 1.64, Estimat Glomerular Filtration Rate 42, BUN/Creatinine Ratio 27, Glucose Level 121, Calcium Level 8.1, Corrected Calcium 9.0, Total Bilirubin 1.1, Aspartate Amino Transf (AST/SGOT) 52, Alanine Aminotransferase (ALT/SGPT) 108, Alkaline Phosphatase 151, C-Reactive Protein High Sensitivity 9.92, Total Protein 5.3, Albumin 2.9 03/16/18 13:07: Glucometer 299 03/16/18 16:59: Glucometer 261 03/16/18 20:46: Glucometer 224 03/17/18 05:47: Glucometer 154 03/17/18 09:55: White Blood Count 7.5, Red Blood Count 3.15, Hemoglobin 9.1, Hematocrit 28, Mean Corpuscular Volume 90, Mean Corpuscular Hemoglobin 29, Mean Corpuscular Hemoglobin Concent 32, Red Cell Distribution Width 14.8, Platelet Count 201, Mean Platelet Volume 10.5, Neutrophils (%) (Auto) 85, Lymphocytes (%) (Auto) 9, Monocytes (%) (Auto) 6, Eosinophils (%) (Auto) 1, Basophils (%) (Auto) 0, Neutrophils # (Auto) 6.3, Lymphocytes # (Auto) 0.7, Monocytes # (Auto) 0.4, Eosinophils # (Auto) 0.1, Basophils # (Auto) 0.0, Sodium Level 140, Potassium Level 3.7, Chloride Level 110, Carbon Dioxide Level 18, Anion Gap 12, Blood Urea Nitrogen 34, Creatinine 1.58, Estimat Glomerular Filtration Rate 44, BUN/ Creatinine Ratio 22, Glucose Level 290, Calcium Level 8.7, Corrected Calcium 9.3 , Total Bilirubin 0.9, Aspartate Amino Transf (AST/SGOT) 31, Alanine Aminotransferase (ALT/SGPT) 94, Alkaline Phosphatase 164, Total Protein 6.2, Albumin 3.3 03/17/18 11:56: Glucometer 282 03/17/18 17:09: Glucometer 179 03/17/18 21:03: Glucometer 224 03/18/18 05:40: White Blood Count 5.8, Red Blood Count 2.72, Hemoglobin 7.9, Hematocrit 25, Mean Corpuscular Volume 91, Mean Corpuscular Hemoglobin 29, Mean Corpuscular Hemoglobin Concent 32, Red Cell Distribution Width 14.9, Platelet Count 230, Mean Platelet Volume 10.6, Neutrophils (%) (Auto) 73, Lymphocytes (%) (Auto) 18 , Monocytes (%) (Auto) 6, Eosinophils (%) (Auto) 3, Basophils (%) (Auto) 0, Neutrophils # (Auto) 4.2, Lymphocytes # (Auto) 1.1, Monocytes # (Auto) 0.3, Eosinophils # (Auto) 0.2, Basophils # (Auto) 0.0, Sodium Level 144, Potassium Level 3.7, Chloride Level 115, Carbon Dioxide Level 18, Anion Gap 11, Blood Urea Nitrogen 30, Creatinine 1.39, Estimat Glomerular Filtration Rate 51, BUN/ Creatinine Ratio 22, Glucose Level 68, Calcium Level 8.3, Corrected Calcium 9.2 , Total Bilirubin 0.6, Aspartate Amino Transf (AST/SGOT) 28, Alanine Aminotransferase (ALT/SGPT) 73, Alkaline Phosphatase 143, Total Protein 5.5, Albumin 2.9 03/18/18 05:50: Glucometer 70 03/18/18 11:28: Glucometer 275 03/18/18 16:08: Glucometer 129 03/18/18 20:42: Glucometer 203 03/19/18 05:00: Glucometer 216 03/19/18 11:30: Glucometer 203 Discharge Home Medications: Active Scripts Active Baclofen 10 Mg Tablet 10 Mg PO TID PRN Reported Flaxseed Oil 1,000 Mg Capsule 1,000 Mg PO DAILY Aspirin EC (Aspirin) 81 Mg Tablet.dr 81 Mg PO DAILY Daily Value (Multivitamin) 1 Each Tablet 1 Tab PO DAILY Vitamin B Complex 1 Each Capsule 1 Cap PO DAILY Novolog Flexpen (Insulin Aspart) 300 Units/3 Ml Solution 4-8 Units SC TIDAC Diclofenac Sodium 75 Mg Tablet.dr 75 Mg PO BID Tresiba Flextouch U-200 (Insulin Degludec) 200 Unit/1 Ml Insuln.pen 30 Unit SQ HS Amlodipine Besylate 10 Mg Tablet 10 Mg PO DAILY Tamsulosin HCl 0.4 Mg Cap.er.24h 0.4 Mg PO DAILY Simvastatin 20 Mg Tablet 20 Mg PO DAILY Pantoprazole Sodium 40 Mg Tablet.dr 40 Mg PO DAILY Glucophage (Metformin HCl) 1,000 Mg Tab 1,000 Mg PO BID WITH MEALS Gabapentin 300 Mg Capsule 300 Mg PO 0800,1800 Clopidogrel (Clopidogrel Bisulfate) 75 Mg Tablet 75 Mg PO DAILY Instructions to patient/family Please see electronic discharge instructions given to patient. Diagnosis/Problems Diagnosis/Problems (1) Debility Status: Acute (2) Pacemaker Status: Chronic (3) Renal insufficiency Status: Acute (4) Anemia, posthemorrhagic, acute Status: Acute (5) Transfusion of blood during current hospitalization Status: Acute (6) Diabetes mellitus Status: Chronic (7) Hypertension Status: Chronic (8) COPD (chronic obstructive pulmonary disease) Status: Chronic (9) Chronic bronchitis Status: Chronic (10) Fever postop Status: Acute (11) H/O lumbosacral spine surgery Status: Acute (12) Delirium Status: Acute (13) Hypokalemia Status: Acute (14) BPH (benign prostatic hyperplasia) Status: Chronic (15) Hyperlipidemia Status: Chronic (16) GERD (gastroesophageal reflux disease) Status: Chronic (17) Neuropathy Status: Chronic (18) Fecal incontinence Status: Acute (19) SSS (sick sinus syndrome) Status: Chronic (20) Hx TIA/stroke w/o resid Status: Chronic (21) Iron deficiency Clinical Quality Measures DVT/VTE Risk/Contraindication: Risk Factor Score Per Nursin RFS Level Per Nursing on Admit: 4+=Very High MARC THURMAN DO Mar 19, 2018 09:15
--- NOTE | 2018-03-19 10:25 | NUR ---
Pastoral care visit.
[2018-03-19] MEDS: BACLOFEN 10 MG (LIORESAL) TAB PO PRN (11:00)
[2018-03-19 12:00] VITALS: BP 145/80
--- NOTE | 2018-03-19 14:52 | Therapy Team Discharge Summary ---
Therapy Discharge Summary Discharge Recommendations Date of Discharge Therapy D/C Recommendations: Home w/ Family Support, Occupational Therapy Home Care Occupational Therapy Pt admitted to ARU following back surgery. On admission pt required mod assist for bathing and toileting, min assist for LE dressing, and SBA for toilet transfer. Skilled OT intervention focused on ADL training, transfers, strengthening, and adaptive equipment training. Pt made good progress and by discharge is completing bathing and LE dressing with SBA and other basic self care and toilet transfers with modified independence. Pt did not meet goals for LE dressing and shower transfer, but met other OT LTG. Pt discharged home with spouse this date. D/c ARU OT at this time. Decreased Activ Tolerance, Decreased Safety Aware, Decreased UE Strength, Impaired Funct Balance, Impaired Self-Care Skills PT Correction Goals Observatory Director Goals PT Correction Goals Time Frame: Apr 12, 2018 Transfers (B,C,W/C) (FIM): 7 Roll Left to Right (QC): 7 Sit to Lying (QC): 7 Lying-Sitting on Side/Bed(QC): 7 Sit to Stand (QC): 7 Chair/Glj-sl-Ypvgo Xfer(QC): 7 Car Transfer (QC): 7 Does the Patient Walk: Yes Gait (FIM): 6 Gait distance (FIM): 3=150 ft Distance: 500' Walk 10 feet (QC): 7 Walk 10ft-Uneven Surface(QC): 7 Walk 50ft with 2 Turns (QC): 7 Walk 150 ft (QC): 7 Gait Level of Assist: 6 Gait Assistive Device: FWW OT Observatory Director Goals Correction Goals Time Frame: Mar 29, 2018 Eating (FIM): 6 (met 03/18/18) Eating (QC): 6 (6-MET) Oral Hygiene (QC): 6 (6-MET) Grooming(FIM): 6 (met 03/18/18) Bathing(FIM): 5 (met 03/18/18) Shower/Bathe Self (QC): 5 (5-MET) Upper Body Dressing(FIM): 6 (met 03/18/18) Upper Body Dressing (QC): 6 (6-MET) Lower Body Dressing(FIM): 6 (not met) Lower Body Dressing (QC): 6 (5-Not met) On/Off Footwear (QC): 6 (5-not met) Toileting(FIM): 6 (met 03/18/18) Toileting Hygiene (QC): 6 (6-MET) Toilet/Commode Transfer(FIM): 6 (met 03/18/18) Toilet/Commode Transfer (QC): 6 (6-MET) Shower Transfer(FIM): 5 Additional Goals: 1-Demonstrate ADL Tasks, 2-Verbalize Understanding, 3- ImproveStrength/Isaac 1=Demonstrate adherence to instructed precautions during ADL tasks. 2=Patient will verbalize/demonstrate understanding of assistive devices/ modifications for ADL. 3=Patient will improve strength/tolerance for activity to enable patient to perform ADL's. AIDA CASTILLO OT Mar 19, 2018 14:52
== END 2018-03-19 12:15 | disposition home or self-care (01) | DRG 560 ==
PROVIDERS: ADMIT Internal Medicine; ATTEND Internal Medicine
DX: Z47.89 Encounter for other orthopedic aftercare (principal); Z98.1 Arthrodesis status; R53.1 Weakness; R41.0 Disorientation, unspecified; D62 Acute posthemorrhagic anemia; E11.21 Type 2 diabetes mellitus with diabetic nephropathy; E11.42 Type 2 diabetes mellitus with diabetic polyneuropathy; I12.9 Hypertensive chronic kidney disease with stage 1 through stage 4 chronic kidney disease, or unspecified chronic kidney disease; N18.4 Chronic kidney disease, stage 4 (severe); L89.322 Pressure ulcer of left buttock, stage 2; J44.9 Chronic obstructive pulmonary disease, unspecified; I25.10 Atherosclerotic heart disease of native coronary artery without angina pectoris; I48.91 Unspecified atrial fibrillation; E78.5 Hyperlipidemia, unspecified; K21.9 Gastro-esophageal reflux disease without esophagitis; K44.9 Diaphragmatic hernia without obstruction or gangrene; R15.9 Full incontinence of feces; N40.0 Benign prostatic hyperplasia without lower urinary tract symptoms; I49.5 Sick sinus syndrome; E87.6 Hypokalemia; I45.10 Unspecified right bundle-branch block; Z87.891 Personal history of nicotine dependence; Z95.0 Presence of cardiac pacemaker
CPT/HCPCS: 36415; 71046; 72100; 73502; 74019; 80053; 81000; 82140; 82962; 83540; 83605; 83880; 84443; 84484; 85025; 85652; 86141; 86850; 86900; 86901; 86920; 93005; 94640; 94664; 94760